=== PATIENT | female | born 1960 | race Caucasian/White ===

== ENCOUNTER → 2017-11-04 13:37 | Outpatient (CLI) | payer OTHER, SELFPAY ==
--- NOTE | 2017-11-04 13:44 | XR_ITS ---
EXAM: XR thoracic spine 3V HISTORY: ITS.REASON: UPPER BACK PAIN,CHEST WALL PAIN COMPARISON: None FINDINGS: Normal alignment. No fracture or dislocation. No lytic or blastic change. There are mild degenerative changes in the midthoracic spine with decrease in the joint space and osteophyte formation anteriorly from T5 to T9. IMPRESSION: Thoracic spondylosis. No acute fracture or dislocation or lytic or blastic change
--- NOTE | 2017-11-04 13:44 | XR_ITS ---
XR chest 2V HISTORY: ITS.REASON: UPPER BACK PAIN,CHEST WALL PAIN ORDERING PHYSICIAN: Kameron Gray MD PATIENT AGE: 57 years COMPARISON: 09/18/2016 FINDINGS: The cardiomediastinal silhouette and pulmonary vascularity are within normal limits. The lungs are clear without infiltrates, suspicious nodules, or pleural effusions. No acute bony abnormalities. IMPRESSION: Negative chest, no acute finding
== END ==
PROVIDERS: PCP Internal Medicine Adolescent Medicine; Visit Provider Internal Medicine Adolescent Medicine
DX: M54.9 Dorsalgia, unspecified (principal); R07.89 Other chest pain
CPT/HCPCS: 71046; 72072

== ENCOUNTER → 2018-11-04 10:51 | Outpatient (CLI) | payer MEDICAID, SELFPAY ==
--- NOTE | 2018-11-04 10:53 | MM_ITS ---
MM Dig screening mamm BI w/CAD CAD Screening COMPARISON: Digital mammograms with CAD 09/06/2015 INDICATION: There is a history of breast cancer in patient's sister diagnosed at age 51 there is been previous biopsy right breast for benign disease. TECHNIQUE: Standard CC and MLO images were obtained. R2 CAD reviewed. FINDINGS: Moderate scattered fibroglandular densities are seen throughout both breasts. There is a stable nodular density upper outer quadrant left breast, stable since 2008. There are couple benign-appearing microcalcifications in each breast. There is no suspicious lesion and there are no suspicious microcalcifications. IMPRESSION: Moderate breast density with no suspicious lesion seen BI-RADS Category: 2 Benign Finding(s) RECOMMENDED FOLLOW-UP: 1YR - 1 YEAR FOLLOW-UP (A letter has been sent to the patient regarding results of the study.)
== END ==
PROVIDERS: PCP Internal Medicine Adolescent Medicine; Visit Provider Internal Medicine Adolescent Medicine
DX: Z12.31 Encounter for screening mammogram for malignant neoplasm of breast (principal)
CPT/HCPCS: 77067

== ENCOUNTER → 2019-03-31 07:16 | Outpatient (CLI) | payer MEDICAID, SELFPAY ==
[2019-03-31 09:20] LABS: Alanine Aminotransferase 17 U/L (12-78); Albumin Level 3.7 gm/dL (3.4-5.0); Albumin/Globulin Ratio 1.3 (1.1-1.8); Alkaline Phosphatase 85 U/L (46-116); Anion Gap 8.7 mEq/L (5-15); Aspartate Amino Transferase 8 U/L (15-37); Bilirubin,Total 0.6 mg/dL (0.2-1.0); Blood Urea Nitrogen 10 mg/dL (7-18); Calcium 9.1 mg/dL (8.5-10.1); Carbon Dioxide 33 mmol/L (21.0-32.0); Chloride 103 mmol/L (98-107); Chol/HDL Ratio 4.6 (1-3.5); Cholesterol 204 mg/dL (140-200); Creatinine,Serum 0.99 mg/dL (0.55-1.02); Estimated Glomerular Filt Rate 57 ml/min (>60); GFR (African American) 69 ML/MIN (>60); Globulin 2.9 gm/dl (1.3-3.2); Glucose 91 mg/dL (74-106); HDL Cholesterol 44 mg/dL (29-89); LDL Cholesterol 123 mg/dL (0-130); Potassium 3.7 mmoL/L (3.5-5.1); Sodium 141 mmol/L (136-145); Total Protein,Serum 6.6 gm/dL (6.4-8.2); Triglycerides 187 mg/dL (30-200); VLDL Cholesterol 37 mg/dL (0-40)
== END ==
PROVIDERS: Visit Provider Internal Medicine Adolescent Medicine
DX: I10 Essential (primary) hypertension (principal); E78.5 Hyperlipidemia, unspecified
CPT/HCPCS: 36415; 80053; 80061

== ENCOUNTER → 2019-10-19 15:20 | Outpatient (CLI) | payer OTHER, SELFPAY ==
--- NOTE | 2019-10-19 15:25 | CT_ITS ---
PROCEDURE: CT LUNG SCREENING CLINICAL INDICATION: H/O NICOTINE DEPENDENCE Fifty pack-year smoking history, asymptomatic for lung cancer COMPARISON: W CT CHEST W/ CONTRAST from 06/07/2013 TECHNIQUE: The exam was performed on a GE Light Speed [address] scanner using 2.90 mGy CTDI. A low dose helical CT CHEST was performed on a multi-detector scanner. All CT scans at the facility use one or more dose reduction, viz: automated exposure control, ma/kV adjustment per patient size (including targeted exams where dose is matched to indication, i.e. head), or iterative reconstruction technique. The LDCT was performed in a facility that meets the criteria for the screening program. Data regarding this exam was submitted to ACR which is an approved registry. The order for this exam indicates that it came as a result of a lung cancer screening counseling shard decision-making visit that included all the elements required of such a visit including smoking cessation. The radiologist interpreting this exam meets the CMS criteria for the LDCT lung cancer screening program. The exam is reported using the Lung-RADS classification scale and reported to the ACR registry. NOTE: This study was performed for the specific purposes of lung cancer screening and is not an alternative to diagnostic chest CT. RADIATION DOSE: CTDI vol(CT dose Index-volume) = 2.90mG DLP (Dose Length Product) = 116.46 mGcm FINDINGS: Centrilobular emphysema. There is calcified nodule on the posterior aspect of the left upper lobe. There are few small satellite nodules around this region. There is a 4 mm noncalcified nodule in the lingula not significantly changed there is a 6 mm nodule in the inferior aspect of the lingula not significantly changed. There are scattered small nodular opacities at 2-3 mm which overall appears stable. OTHER FINDINGS: There is calcification at the aortic root. There is degenerative disc disease with sclerosis of the endplates anteriorly at T8-T9 IMPRESSION: Lung rads category 2 benign findings. Recommend 12 month LDCT screening Dictated by: Gregg Marie MD 11/01/2019 09:19 Electronically signed by Gregg Marie MD in [place] 11/01/2019 09:19
== END ==
PROVIDERS: PCP Internal Medicine Adolescent Medicine; Visit Provider Internal Medicine Adolescent Medicine
DX: Z87.891 Personal history of nicotine dependence (principal); Z12.2 Encounter for screening for malignant neoplasm of respiratory organs

== ENCOUNTER → 2019-11-07 15:01 | Outpatient (CLI) | payer OTHER, SELFPAY ==
--- NOTE | 2019-11-07 15:06 | MM_ITS ---
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 R2 CAD reviewed. FINDINGS: Breasts are of average density. Benign appearing calcifications are seen in both breasts. There is a new approximately 9 millimeter nodule in the central retroareolar region of the left breast poorly visualized on the MLO view/tomosynthesis possibly superiorly. Increased prominence of an asymmetrical density in the middle 1/3 of the lateral left breast is also apparent. There is no definite correlate on the orthogonal views. Coned compression views of the left breast and ultrasound targeted to the mammographic abnormalities are recommended. The appearance of the right breast is stable. IMPRESSION: BI-RAD Category: 0 Need Additional Imaging Evaluation (A letter has been sent to the patient regarding results of the study.) Dictated by: Keo Najera 11/07/2019 18:49 Electronically signed by Keo Najera in [place] 11/07/2019 18:49
== END ==
PROVIDERS: PCP Internal Medicine Adolescent Medicine; Visit Provider Internal Medicine Adolescent Medicine
DX: Z12.31 Encounter for screening mammogram for malignant neoplasm of breast (principal)
CPT/HCPCS: 77063; 77067

== ENCOUNTER → 2020-05-05 10:10 | Outpatient (CLI) | payer OTHER, SELFPAY ==
--- NOTE | 2020-05-05 10:31 | XR_ITS ---
PROCEDURE: XR HAND LT MIN 3V CLINICAL INDICATION: DEGENERATIVE ARTHRITIS OF 1ST MCP ON LEFT HAND Pain COMPARISON: No exams were available for comparison FINDINGS: No fracture or dislocation. There are mild osteoarthritic changes at the 1st metacarpal-carpal joint with periarticular calcification which could be posttraumatic or due to soft tissue calcification. Calcification is present along the lateral aspect of the wrist within the soft tissues. Small periarticular calcification noted laterally at the 1st metacarpal-carpal junction. IMPRESSION: Osteoarthritic changes with nonspecific periarticular calcification Dictated by: Gregg Marie MD 05/05/2020 11:49 Gregg Marie MD in [place] 05/05/2020 11:49
[2020-05-05 10:40] LABS: Basophils % 0.5 % (0.1-2.0); Eosinophils # 0.1 K/mm3 (0.0-0.4); Eosinophils % 1.5 % (0.1-12.0); Hematocrit 46.7 % (37.0-47.0); Hemoglobin 15.8 g/dL (12.2-16.2); Lymphocytes # 2.3 K/mm3 (0.7-4.5); Mean Corpuscular HGB Conc 33.9 g/dL (31.8-35.4); Mean Corpuscular Hemoglobin 31.2 pg (27.0-31.2); Mean Platelet Volume 7.9 fl (7.4-10.4); Monocytes # 0.3 K/mm3 (0.1-1.0); Monocytes % 4.1 % (1.7-9.3); Neutrophils # 4.8 K/mm3 (1.8-7.8); Neutrophils % 62.9 % (37.0-80.0); Platelet Count 268 K/mm3 (142-424); Red Blood Count 5.08 M/mm3 (4.20-5.40); White Blood Count 7.6 K/mm3 (4.8-10.8)
[2020-05-05 11:17] LABS: Chloride 99 mmol/L (98-107); Potassium 3.6 mmoL/L (3.5-5.1); Sodium 139 mmol/L (136-145)
[2020-05-05 11:19] LABS: Alanine Aminotransferase 17 U/L (12-78); Aspartate Amino Transferase 23 U/L (14-36); Blood Urea Nitrogen 15 mg/dl (7-17); Estimated Glomerular Filt Rate 73 ml/min (>60); GFR (African American) 89 ML/MIN (>60)
[2020-05-05 11:20] LABS: Albumin Level 4.3 g/dl (3.5-5.0); Albumin/Globulin Ratio 1.6 (1.1-1.8); Alkaline Phosphatase 69 U/L (38-126); Anion Gap 11.6 mEq/L (5-15); Bilirubin,Total 0.9 mg/dl (0.2-1.3); Calcium 9.8 mg/dl (8.4-10.2); Carbon Dioxide 32 mmol/L (22.0-30.0); Chol/HDL Ratio 3.5 (1-3.5); Cholesterol 217 mg/dl (140-200); Globulin 2.7 g/dL (1.3-3.2); Glucose 103 mg/dl (74-100); HDL Cholesterol 62 mg/dl (40-60); Triglycerides 159 mg/dl (30-150); VLDL Cholesterol 32 mg/dL (0-40)
[2020-05-05 12:08] LABS: Amphetamine/Metha Screen,Urine Negative ng/ml (<1000)
[2020-05-05 12:10] LABS: Barbiturates Screen,Urine Negative ng/ml (<200)
[2020-05-05 12:11] LABS: Benzodiazepines Screen,Urine Negative ng/ml (<200); Cannabinoid Screen,Urine Negative ng/ml (<50)
[2020-05-05 12:12] LABS: Cocaine Screen,Urine Negative ng/ml (<300); Methadone Screen,Urine Negative ng/ml (<300)
[2020-05-05 12:13] LABS: Opiate Screen,Urine Negative ng/ml (<300)
[2020-05-05 12:14] LABS: Phencyclidine Screen,Urine Negative ng/ml (<25)
== END ==
PROVIDERS: Visit Provider Internal Medicine Adolescent Medicine
DX: L40.9 Psoriasis, unspecified (principal); M19.042 Primary osteoarthritis, left hand
CPT/HCPCS: 36415; 73130; 80053; 80061; 80305; 85025

== ENCOUNTER → 2020-06-22 13:33 | Outpatient (CLI) | payer OTHER, SELFPAY ==
--- NOTE | 2020-06-22 13:38 | MR_ITS ---
PROCEDURE: MR HAND LT WO CON CLINICAL INDICATION: PAIN IN LEFT HAND PT FELL [id number] AGO BUT KNOT CAME UP ON LATERAL ASPECT OF HAND AT PROMIXAL METACARPAL OF 1ST DIGIT [id number] AGO. KNOT IS PAINFUL TO PRESS. PUT MARKER ON KNOT. PRIOR X-RAY 05-05-20 COMPARISON: CR XR HAND LT MIN 3V from 05/05/2020 TECHNIQUE: Routine multiplanar multi echo sequences are performed without gadolinium enhancement. FINDINGS: A marker is placed on the lateral aspect of the hand at the area of clinical concern. The marker is placed along the lateral aspect of the 1st metacarpal-carpal joint. Just deep to the marker is the abductor pollicis longus tendon with some fluid around the tendon sheath of the abductor pollicis longus tendon and extensor pollicis brevis tendon.at this region. There is a oval area of fluid at this area best identified on the coronal and sagittal images which measures 7 mm which could be partial averaging from the fluid around the tendon sheath or a small ganglion cyst. There is extensive edema at the base of the 1st metatarsal and the adjacent trapezium with osteoarthritic changes at the 1st metacarpal-carpal joint. There is increased T2 signal involving the distal phalanx of the 3rd digit however, this does not show increased activity on the STIR images suggesting that this may be artifactual. IMPRESSION: 1. There is a small amount of fluid around the abductor pollicis longus and extensor pollicis brevis tendons at the 1st metacarpal-carpal joint. On the sagittal and coronal images the fluid appears more localized at the adductor pollicis longus tendon measuring approximately 7 mm and may be due to small ganglion cyst. 2. Severe osteoarthritis of the 1st metacarpal-carpal joint with significant bone marrow edema of the base of the 1st metacarpal and trapezium Dictated by: Gregg Marie MD 06/26/2020 11:44 Gregg Marie MD in [place] 06/26/2020 11:44
== END ==
PROVIDERS: PCP Internal Medicine Adolescent Medicine; Visit Provider Orthopaedic Surgery Adult Reconstructive Orthopaedic Surgery
DX: M79.642 Pain in left hand (principal)
CPT/HCPCS: 73218

== ENCOUNTER → 2020-11-01 07:59 | Outpatient (CLI) | payer BC, SELFPAY ==
--- NOTE | 2020-11-01 08:07 | CT_ITS ---
PROCEDURE: CT LUNG SCREENING CLINICAL INDICATION: H/O NICOTINE DEPENDENCE Current smoker 49 pack year smoking history copd No prior COMPARISON: CT CT LUNG SCREENING from 10/19/2019 TECHNIQUE: The exam was performed on a GE Light Speed [address] scanner using 2.90 mGy CTDI. A low dose helical CT CHEST was performed on a multi-detector scanner. All CT scans at the facility use one or more dose reduction, viz: automated exposure control, ma/kV adjustment per patient size (including targeted exams where dose is matched to indication, i.e. head), or iterative reconstruction technique. The LDCT was performed in a facility that meets the criteria for the screening program. Data regarding this exam was submitted to ACR which is an approved registry. The order for this exam indicates that it came as a result of a lung cancer screening counseling shard decision-making visit that included all the elements required of such a visit including smoking cessation. The radiologist interpreting this exam meets the CMS criteria for the LDCT lung cancer screening program. The exam is reported using the Lung-RADS classification scale and reported to the ACR registry. NOTE: This study was performed for the specific purposes of lung cancer screening and is not an alternative to diagnostic chest CT. RADIATION DOSE: CTDI vol(CT dose Index-volume) = 2.90mG DLP (Dose Length Product) = 102.90 mGcm FINDINGS: COPD changes with coarsening of the bronchovascular markings which may be seen with smoking related lung disease. 4 mm nodule right upper lobe image 26 not readily apparent previous exam. Faint 3 mm opacity right upper lobe subpleural image 31 also not readily apparent. There are 2 3 mm nodules in the right upper lobe centrally image 33 which have developed in the interval. Stable 7 mm opacity right middle lobe which may actually represent 2 small nodules image 43. There is faint increased density with some bronchial thickening in the right upper lobe posteriorly and a faint ground-glass nodule in the superior segment of the right lower lobe image 28. Stable 5 mm nodule left lower lobe subpleural image 58. New 5 mm nodule left lower lobe posteriorly image 41. Numerous small opacities are present in the left upper lobe some of which are ground-glass in nature. Stable calcified granuloma left upper lobe with small satellite nodules. Atelectatic or fibrotic changes are present in the lung bases. OTHER FINDINGS: Degenerative changes thoracic spine. Borderline splenomegaly IMPRESSION: Lung-RADS Category 4A Suspicious Follow-up: [address] with contrast There are numerous new small nodular opacities in the upper lobes some of which are ground-glass in nature along with a faint ground-glass infiltrate in the right upper lobe and some mild bronchial thickening. These findings may be root infectious/inflammatory in nature. Cannot exclude the possibility of a metastatic process. Suggest [address] follow-up with contrast. Has the patient had recent pneumonia or bronchitis? Dictated by: Gregg Marie MD 11/02/2020 08:03 Gregg Marie MD in [place] 11/02/2020 08:03
--- NOTE | 2020-11-01 08:07 | MM_ITS ---
PROCEDURE: MM DIG SCREENING MAMM BI W/CAD Digital Breast Tomosynthesis Included CLINICAL INDICATION: SCREENING There is a history of breast cancer patient's sister diagnosed at age 51. There has been a previous biopsy left breast for benign disease. COMPARISON: MG [facility] DIG MAMM-SCREEN SHAKIR from 09/06/2015 [facility] MM Dig screening mamm BI w/CAD from 11/04/2018 MG MM DIG SCREENING MAMM BI W/CAD from 11/07/2019 TECHNIQUE: Standard CC and MLO images and 3D Tomosynthesis was obtained. R2 CAD reviewed. FINDINGS: Moderate scattered fibroglandular densities are seen throughout both breasts. There are no CAD markings. There there are 3 mole markers left breast. There is a stable benign-appearing nodular density upper-outer quadrant. There are couple of benign-appearing microcalcifications left breast and a single benign-appearing microcalcification right breast. There is no new or suspicious lesion in either breast and no suspicious microcalcifications. IMPRESSION: Fibrofatty parenchyma with no suspicious lesions seen BI-RAD Category: 2 Benign Finding(s) FOLLOW-UP: 1YR 1 Year Follow-up (A letter has been sent to the patient regarding results of the study.) Dictated by: Dr. Douglas Garcia MD 11/02/2020 13:51 Dr. Douglas Garcia MD in [place] 11/02/2020 13:51
== END ==
PROVIDERS: PCP Internal Medicine Adolescent Medicine; Visit Provider Internal Medicine Adolescent Medicine
DX: Z12.31 Encounter for screening mammogram for malignant neoplasm of breast (principal); Z87.891 Personal history of nicotine dependence; Z12.2 Encounter for screening for malignant neoplasm of respiratory organs
CPT/HCPCS: 71271; 77063; 77067

== ENCOUNTER → 2021-01-09 10:41 | Outpatient (CLI) | payer BC, SELFPAY ==
[2021-01-09 11:43] LABS: Basophils # 0.1 K/mm3 (0-0.2); Basophils % 0.8 % (0.1-2.0); Eosinophils # 0.1 K/mm3 (0.0-0.4); Eosinophils % 1.1 % (0.1-12.0); Hematocrit 47.2 % (37.0-47.0); Hemoglobin 15.9 g/dL (12.2-16.2); Lymphocytes # 2.4 K/mm3 (0.7-4.5); Lymphocytes % 25.2 % (10-50); Mean Corpuscular HGB Conc 33.6 g/dL (31.8-35.4); Mean Corpuscular Hemoglobin 30.4 pg (27.0-31.2); Mean Corpuscular Volume 90.6 fl (81-99); Mean Platelet Volume 8.1 fl (7.4-10.4); Monocytes # 0.5 K/mm3 (0.1-1.0); Monocytes % 4.9 % (1.7-9.3); Neutrophils # 6.4 K/mm3 (1.8-7.8); Neutrophils % 67.9 % (37.0-80.0); Platelet Count 290 K/mm3 (142-424); Red Blood Count 5.21 M/mm3 (4.20-5.40); Red Cell Distribution Width 13.2 % (11.5-17.5); White Blood Count 9.5 K/mm3 (4.8-10.8)
[2021-01-09 12:16] LABS: Alanine Aminotransferase 13 U/L (12-78); Albumin Level 4.5 g/dl (3.5-5.0); Albumin/Globulin Ratio 1.6 (1.1-1.8); Alkaline Phosphatase 75 U/L (38-126); Anion Gap 9.4 mEq/L (5-15); Aspartate Amino Transferase 22 U/L (14-36); Bilirubin,Total 0.8 mg/dl (0.2-1.3); Blood Urea Nitrogen 10 mg/dl (7-17); Calcium 9.4 mg/dl (8.4-10.2); Carbon Dioxide 33 mmol/L (22.0-30.0); Chloride 100 mmol/L (98-107); Chol/HDL Ratio 4.2 (1-3.5); Cholesterol 228 mg/dl (140-200); Estimated Glomerular Filt Rate 73 ml/min (>60); GFR (African American) 88 ML/MIN (>60); Globulin 2.8 g/dL (1.3-3.2); Glucose 93 mg/dl (74-100); HDL Cholesterol 54 mg/dl (40-60); Potassium 4.4 mmoL/L (3.5-5.1); Sodium 138 mmol/L (136-145); Total Protein,Serum 7.3 g/dl (6.3-8.2); Triglycerides 201 mg/dl (30-150); VLDL Cholesterol 40 mg/dL (0-40)
[2021-01-09 12:28] LABS: Direct LDL Cholesterol 117.43 mg/dL (100-129)
[2021-01-09 12:47] LABS: Thyroid Stimulating Hormone 2.79 uIU/mL (0.465-4.68)
== END ==
PROVIDERS: Visit Provider Internal Medicine Adolescent Medicine
DX: I10 Essential (primary) hypertension (principal); E78.5 Hyperlipidemia, unspecified
CPT/HCPCS: 36415; 80053; 80061; 84443; 85025

== ENCOUNTER 2021-01-17 17:43 | Emergency (ER) | payer BC, SELFPAY ==
[2021-01-17 17:45] VITALS: BP 128/78; PULSE 90; RESP 20; TEMP 37; O2SAT 95; BMI 29.9
--- NOTE | 2021-01-17 18:03 | HMH.EDUTC ---
[facility] Disposition Clinical Impression: UTI (urinary tract infection) Low back pain Qualifiers: Chronicity: acute Back pain laterality: left Sciatica presence: with sciatica Sciatica laterality: sciatica of left side Qualified Code(s): M54.42 - Lumbago with sciatica, left side Disposition: Home, Self-Care Condition on Discharge: Good Instructions: DI for Low Back Pain, DI for Urinary Tract Infection (UTI) Additional Instructions: Go home and rest. It would be best if you rested tomorrow too. No heavy lifting. No twisting. Take the oral medications as directed. The muscle relaxer (cyclobenzaprine) will make you drowsy, so don't drive or operate heavy machinery after taking it. Don't start the oral steroids (medrol dose pack) until tomorrow, since you had the shots in here today. Follow up with your regular doctor. GO TO THE ER FOR ANY WORSENING SYMPTOMS OR CONCERN, ESPECIALLY BOWEL OR BLADDER ISSUES, SADDLE AREA NUMBNESS, FEVER, ETC Prescriptions: Sulfamethoxazole/Trimethoprim [Bactrim DS tablet] 1 each PO BID 7 Days #14 tab Transmission Status: Received by [id number] Cyclobenzaprine HCl [Cyclobenzaprine 10mg Tab] 10 mg PO BIDP PRN #20 tab PRN Reason: Muscle Spasm Transmission Status: Received by [id number] methylPREDNISolone [Medrol] 4 mg PO DIRECTED 6 Days #21 tab.ds.pk Transmission Status: Received by [id number] Referrals: Kameron Gray MD [Primary Care Provider] - Forms: Work/School Release Time of Disposition: 18:18 Medical Decision Making - Medical Records Medical records reviewed: No: I reviewed the patient's medical records. - Negrito Inquiry Pt receiving controlled substance: No Vital Signs: 01/17/21 17:45 01/17/21 18:18 Temperature 98.6 F 98.6 F Temperature Source Oral Pulse Rate 90 Pulse Rate [Left Brachial] 90 Respiratory Rate 20 20 Blood Pressure 128/78 Blood Pressure [Left Arm] 128/78 Blood Pressure Mean [Left Arm] 94 Blood Pressure Source [Left Arm] Automatic Cuff Blood Pressure Position [Left Arm] Sitting 02 Sat by Pulse Oximetry 95 Oxygen Delivery Method Room Air - Lab Data Lab results reviewed: Yes: I reviewed the patient's lab results. Lab Results 01/17/21 18:06: Urine Color Dark yellow, Urine Appearance Clear, Urine pH 5.0, Ur Specific Jacob >= 1.030, Urine Protein Negative, Urine Glucose (UA) Negative, Urine Ketones Negative, Urine Blood Trace, Urine Nitrate Negative, Urine Bilirubin 1+ A, Urine Urobilinogen 0.2, Ur Leukocyte Esterase 1+ A Orders (Tests/Meds): ED MEDICATIONS Discontinued Medications Generic Name Dose Route Start Last Admin Trade Name Julianne PRN Reason Stop Dose Admin Ketorolac Tromethamine 60 mg 01/17/21 18:07 01/17/21 18:10 Ketorolac 60mg/2ml Vial IM 01/17/21 18:08 60 mg ONCE ONE Administration Methylprednisolone Sodium Succinate 125 mg 01/17/21 18:07 01/17/21 18:10 Methylprednisolone Sod Succ 125mg Vial IM 01/17/21 18:08 125 mg ONCE ONE Administration ORDERS Category Date Time Status Urine Culture Stat Micro 01/17/21 17:55 Received [facility] HPI - General Stated complaint: lower back pain Time Seen by Provider: 01/17/21 18:03 - History of Present Illness Provider Complaint: She states that she has had low back pain since getting up today. She had to leave work due to her pain. She has a history of this type of pain, but for some reason it is worse today. She denies any recent injuries. She denies any dysuria or urinary fequency. - Related Data Home Medications Medication Instructions Recorded Confirmed Budesonide/Glycopyr/Formoterol 2 puff IH BID 01/17/21 01/17/21 [Breztri Aerosphere Inhaler] Gabapentin [Gabapentin 100mg Cap] 200 mg PO HS 01/17/21 01/17/21 Hydrocodone/Acetaminophen 1 each PO TIDP PRN 01/17/21 01/17/21 [Hydrocodone-Acetamin 5-325 mg] hydroCHLOROthiazide [HCTZ 25mg 25 mg PO DAILY 01/17/21 01/17/21 tab]
[2021-01-17 18:13] LABS: Apearance,Urine Clear (Clear); Color,Urine Dark Yellow (Yellow); Specific Gravity, Urine >= 1.030 (1.005-1.030)
[2021-01-17 18:14] LABS: Bilirubin,Urine 1+ (Negative); Blood, Urine Trace (Negative); Glucose,Urine (UA) Negative (Negative); Ketones,Urine Negative (Negative); Protein,Urine Negative (Negative); UTC Leukocyte Esterase,Urine 1+ (Negative); UTC Nitrate,Urine Negative (Negative); Urobilinogen,Urine 0.2 EU/dl (0.2)
[2021-01-17 18:18] VITALS: BP 128/78; PULSE 90; RESP 20; TEMP 37; O2SAT 95
== END 2021-01-17 18:23 | disposition home or self-care (01) ==
PROVIDERS: Emergency Provider Nurse Practitioner Family; PCP Internal Medicine Adolescent Medicine
DX: N30.00 Acute cystitis without hematuria (principal); M54.42 Lumbago with sciatica, left side; F17.210 Nicotine dependence, cigarettes, uncomplicated
CPT/HCPCS: 81003; 87086; 96372; 99202; G0463

== ENCOUNTER → 2021-02-02 11:17 | Outpatient (CLI) | payer BC, SELFPAY ==
[2021-02-02 12:32] LABS: Blood Urea Nitrogen 10 mg/dl (7-17); Estimated Glomerular Filt Rate 85 ml/min (>60); GFR (African American) 103 ML/MIN (>60)
== END ==
PROVIDERS: Visit Provider Internal Medicine Adolescent Medicine
DX: R91.8 Other nonspecific abnormal finding of lung field (principal)
CPT/HCPCS: 36415; 82565; 84520

== ENCOUNTER → 2021-02-04 08:35 | Outpatient (CLI) | payer BC, SELFPAY ==
--- NOTE | 2021-02-04 08:40 | CT_ITS ---
PROCEDURE: CT CHEST W CON CLINCAL INDICATION: PULMONARY NODULE Follow up LDLS on pacs COMPARISON: CT CT LUNG SCREENING from 11/01/2020 TECHNIQUE: IV Contrast: 75ml Isovue 370 Axial images obtained with sagittal and coronal reformats. All CT scans at the facility use one or more dose reduction, viz: automated exposure control, ma/kV adjustment per patient size (including targeted exams where dose is matched to indication, i.e. head), or iterative reconstruction technique. FINDINGS: HEART AND MEDIASTINAL STRUCTURES: Unremarkable. LUNGS AND PLEURAL SPACES: COPD with centrilobular emphysema and evidence of old granulomatous disease. Scattered faint small pulmonary opacities are once again noted. Most of these are unchanged. A few nodules previously identified are no longer apparent. No new nodules evident. Two small nodular opacities in the right upper lobe anteriorly which in combination measures 7 mm on the previous study are unchanged. The previously described nodule in the right upper lobe which measured 4 mm is not evident on today's exam. Bronchial thickening once again noted. No effusions or infiltrates evident. BONY STRUCTURES: Degenerative changes thoracic spine UPPER ABDOMEN: Unremarkable. ADDITIONAL FINDINGS: No other significant abnormalities. IMPRESSION: Scattered small pulmonary nodular opacities are once again noted. Most are unchanged. A few are less apparent or not identified. No new nodules are evident. These may be inflammatory/infectious in nature. Suggest six-month unenhanced chest CT to confirm further stability. Dictated by: Gregg Marie MD 02/05/2021 10:10 Gregg Marie MD in [place] 02/05/2021 10:11
== END ==
PROVIDERS: PCP Internal Medicine Adolescent Medicine; Visit Provider Internal Medicine Adolescent Medicine
DX: R91.1 Solitary pulmonary nodule (principal)
CPT/HCPCS: 71260; Q9967

== ENCOUNTER → 2021-06-24 10:55 | Outpatient (CLI) | payer BC, OTHER, SELFPAY | PROVIDERS: Visit Provider Surgery | DX: Z01.812 Encounter for preprocedural laboratory examination (principal); Z11.52 Encounter for screening for COVID-19; U07.1 COVID-19 | CPT/HCPCS: C9803; U0003; U0005 ==

== ENCOUNTER → 2021-07-18 15:13 | Outpatient (CLI) | payer OTHER, SELFPAY ==
[2021-07-18 17:02] VITALS: BMI 36.6
== END | disposition home or self-care (01) ==
PROVIDERS: PCP Internal Medicine Adolescent Medicine; Visit Provider Internal Medicine Adolescent Medicine
DX: Z02.1 Encounter for pre-employment examination (principal); Z11.1 Encounter for screening for respiratory tuberculosis
CPT/HCPCS: 86580

== ENCOUNTER → 2021-08-12 14:32 | Outpatient (CLI) | payer OTHER, SELFPAY | PROVIDERS: PCP Internal Medicine Adolescent Medicine; Visit Provider Nurse Practitioner | DX: Z20.822 Contact with and (suspected) exposure to COVID-19 (principal) | CPT/HCPCS: C9803; U0003; U0005 ==

== ENCOUNTER → 2021-09-29 11:10 | Outpatient (CLI) | payer OTHER, SELFPAY | PROVIDERS: Visit Provider Nurse Practitioner | DX: Z20.822 Contact with and (suspected) exposure to COVID-19 (principal) | CPT/HCPCS: C9803; U0003; U0005 ==

== ENCOUNTER → 2021-10-30 13:55 | Outpatient (CLI) | payer OTHER, SELFPAY | PROVIDERS: Visit Provider Surgery | DX: Z01.812 Encounter for preprocedural laboratory examination (principal); Z11.52 Encounter for screening for COVID-19; Z12.11 Encounter for screening for malignant neoplasm of colon | CPT/HCPCS: C9803; U0003; U0005 ==

== ENCOUNTER 2021-11-01 08:28 | Day surgery (SDC) | payer OTHER, SELFPAY ==
[2021-09-10 13:51] VITALS: BMI 33.1
[2021-10-30 12:22] VITALS: BMI 33.1
[2021-11-01 08:41] VITALS: BP 149/77; PULSE 92; RESP 18; TEMP 36.8; O2SAT 95
--- NOTE | 2021-11-01 08:57 | HMH.ANESCL ---
[facility] Anesthesia Checklist - Patient Identification Patient Identification: Arm Band - Structural Data Admitted From: Home Planned Operative Procedure/s: colonoscopy Consent for Planned Operative Procedure(s) Verified: Yes Verified Documents: Surgical Consent, History and Physical - NPO Status Verified Time NPO: 00:00 - Additional verifications Anesthesia Reactions: No - Airway Assessment C-Spine Mobility Assessed: Yes (mp2) TMJ Mobility Assessed: Yes Dentition: Good Dentition - Neurological Assessment Level of Consciousness: Awake, Alert - Anesthesia Plan Anesthesia Risk discussed: Yes Anesthesia Plan: Verified ASA Class: II Anesthesia Type: MAC [facility] History I have reviewed the patient's past medical history: Yes Medical History: Reports:: Chronic Obstructive Pulmonary Disease (COPD), Hypertension Denies:: Cancer, Diabetes Mellitus Type 1, Diabetes Mellitus Type 2, Internal Pacemaker, MRSA, Seizures *Have you ever received a pneumonia vaccine?: Yes *Have you received a flu vaccine this season?: Yes Anesthesia experience/problems:: nac Other Surgeries: Yes: Colonoscopy. No: Pacemaker Amputation: No Fractures: No - *Social History Last grade of school completed: High school graduate Smoking Status: Former smoker Tobacco Type: cigarettes # Packs/Day (cigarettes): 2 #Yrs smoked (if former smoker): 45 Smoking End Date: Jun 09, 2021 Alcohol Intake: never Substance Use Type: denies use *Occupational Status:: employed Housing: house Household Members: family *Travel in the last 8 weeks: None Family Hx:: Cancer
[2021-11-01 09:55] VITALS: O2SAT 95
--- NOTE | 2021-11-01 10:38 | HMH.SCOPE ---
- Procedure: Date: 11/01/21 Patient Date of :: 1960 Procedure Performed:: Total colonoscopy to terminal ileum with numerous polypectomy Indications:: Patient is a 61-year-old female who underwent screening colonoscopy by Dr. Winslow on 11/28/2015 which revealed diverticulosis and polyp x3. She had a couple of 4 mm tubular adenomas and sigmoid hyperplastic polyp. It was recommended she undergo follow-up colonoscopy in 5 years. She was scheduled for screening colonoscopy. Performing Provider:: Arnulfo Coreas MD Referring Provider:: Kameron Gray MD Sedation:: MAC sedation Procedure:: Patient was taken to endoscopy procedure room. SHe was positioned in lateral decubitus position. Adequate intravenous sedation was achieved. Variable stiffness Olympus colonoscope was inserted via the anus. Was advanced to the cecum. There was some undigested vegetable matter, medication, and particulate stool within the colon. However, adequate visualization was achieved with thorough irrigation and suctioning. Ileocecal valve and appendiceal orifice were clearly identified. Colonoscope was advanced a short distance into the terminal ileum. Within the cecum there was a relatively large, at likely greater than 15 mm elongated polyp which was removed with hot snare. Remainder polyp removed with cold snare. In the ascending colon there was a small polyp removed with biopsy forceps. In the descending colon polyp was removed with snare. She had some left-sided diverticulosis. There were several rectosigmoid hyperplastic appearing polyps which were removed with cold biopsy forceps. Within the rectum there is a distal polyp removed with cold snare. Retroflexion within the rectum revealed some prolapsing but nonbleeding internal hemorrhoids. Colonoscope was withdrawn. Findings:: Polyps as noted above. She had 7 total polyps removed. Most distal polyps appeared hyperplastic however. Largest polyp of concern was in the cecum which is elongated measuring up to approximately 15 mm. Recommendations:: Follow-up colonoscopy pending pathology. Likely 3 years Complications:: None immediately apparent Estimated blood obtained (mL): 3
[2021-11-01 10:41] VITALS: BP 109/60; PULSE 78; RESP 18; TEMP 36.3; O2SAT 95
[2021-11-01 10:51] VITALS: BP 126/51; PULSE 78; RESP 18; O2SAT 95
[2021-11-01 11:11] VITALS: BP 127/67; PULSE 80; RESP 18; O2SAT 97
== END 2021-11-01 11:11 | disposition home or self-care (01) ==
LOC: OUTP 08:30
PROVIDERS: PCP Internal Medicine Adolescent Medicine; Visit Provider Surgery
PROC: 0DJD8ZZ Inspection of Lower Intestinal Tract, Via Natural or Artificial Opening Endoscopic (ICD-10-PCS; CPT 45385; principal; 2021-11-01 09:30)
DX: Z12.11 Encounter for screening for malignant neoplasm of colon (principal); K62.1 Rectal polyp; K63.5 Polyp of colon; Z86.010 Personal history of colon polyps; J44.9 Chronic obstructive pulmonary disease, unspecified; I10 Essential (primary) hypertension; Z79.899 Other long term (current) drug therapy; Z80.9 Family history of malignant neoplasm, unspecified; Z87.891 Personal history of nicotine dependence
CPT/HCPCS: 45385; 45380

== ENCOUNTER 2022-04-01 08:10 | Emergency (ER) | payer OTHER, SELFPAY ==
--- NOTE | 2022-04-01 08:33 | XR_ITS ---
FINAL REPORT TECHNIQUE: Chest PA & Lateral CLINICAL HISTORY: sob COMPARISON: November 04, 2017 FINDINGS: Two views of the chest were performed. The heart size is normal. The mediastinum is within normal limits. There are mild chronic changes at the lung bases. There are no pleural effusions. There is no pneumothorax. The bony thorax appears intact. IMPRESSION: No acute cardiopulmonary process. Reviewed, Interpreted and Dictated by Kwan Rahman MD Transcribed by Jessica March Authenticated and [facility]
--- NOTE | 2022-04-01 08:36 | HMH.EDUTC ---
[facility] [place] [facility] [place] Clinical Impression: COVID-19 COPD (chronic obstructive pulmonary disease) Qualifiers: COPD type: COPD with acute exacerbation Qualified Code(s): J44.1 - Chronic obstructive pulmonary disease with (acute) exacerbation Disposition: Home, Self-Care Condition on Discharge: Good Instructions: Chronic Obstructive Pulmonary Disease, DI for Chronic Obstructive Pulmonary Disease, DI for COVID-19 (Suspected or Confirmed ), Preventing the Spread of Coronavirus Discharge Instructions Additional Instructions: Drink plenty of fluids. Take tylenol or ibuprofen for pain or fever. Take the medications as directed. Follow up with your regular doctor. GO TO THE ER FOR ANY WORSENING SYMPTOMS Quarantine until you know the results of your covid-19 test. Notify your school or workplace of your results and follow their instructions regarding return to work/school. Prescriptions: Benzonatate [Benzonatate 100mg cap] 100 mg PO TIDP PRN #30 cap PRN Reason: Cough Transmission Status: Received by [facility] methylPREDNISolone [Medrol] 4 mg PO DIRECTED 6 Days #21 packet Transmission Status: Received by [facility] Nirmatrelvir/Ritonavir [Paxlovid 2X150 mg-100 mg (Eua)] 1 packet PO DIRECTED 5 Days #1 packet Transmission Status: Received by [facility] Azithromycin [Z-Ilya 250mg Tab*] 250 mg PO UD DOSE PK #6 tab Transmission Status: Received by [facility] Referrals: Kameron Gray MD [Primary Care Provider] - Time of Disposition: 09:02 Medical Decision Making - Medical Records Medical records reviewed: No: I reviewed the patient's medical records. - Negrito Inquiry Pt receiving controlled substance: No Vital Signs: 04/01/22 08:37 04/01/22 09:17 Temperature 101.4 F H 99.2 F Temperature Source Temporal Artery Scan Pulse Rate 90 Pulse Rate [Left] 110 H Respiratory Rate 18 18 Blood Pressure 124/67 Blood Pressure [Right Arm] 124/67 Blood Pressure Mean [Right Arm] 86 02 Sat by Pulse Oximetry 90 L - Radiology Data #1 Image(s): Chest Image Reviewed: Yes I reviewed the patient's radiology image, Yes I have reviewed radiologist's interpretation Preliminary Findings: Normal/NAD, No Infiltrates Seen FINAL REPORT TECHNIQUE: Chest PA & Lateral CLINICAL HISTORY: sob COMPARISON: November 04, 2017 FINDINGS: Two views of the chest were performed. The heart size is normal. The mediastinum is within normal limits. There are mild chronic changes at the lung bases. There are no pleural effusions. There is no pneumothorax. The bony thorax appears intact. IMPRESSION: No acute cardiopulmonary process. Reviewed, Interpreted and Dictated by Kwan Rahman MD Transcribed by Jessica March Authenticated and [facility] HPI - General Stated complaint: fever, chills, congestion, + home test Time Seen by Provider: 04/01/22 08:36 - History of Present Illness Provider Complaint: She states that for the past 2 day she has had sinus congestion, body aches, chills and she has felt bad. - Related Data Home Medications Medication Instructions Recorded Confirmed Gabapentin [Gabapentin 100mg Cap] 200 mg PO HS 01/17/21 11/12/21 Hydrocodone/Acetaminophen 1 each PO TIDP PRN 01/17/21 11/12/21 [Hydrocodone-Acetamin 5-325 mg] hydroCHLOROthiazide [HCTZ 25mg 25 mg PO DAILY 01/17/21 11/12/21 tab] Fluticasone/Umeclidin/Vilanter 1 puffs IH DAILY 09/10/21 11/12/21 [Trelegy Ellipta 100/62.5/25mcg Inhaler] Previous Rx's Medication Instructions Recorded Cyclobenzaprine HCl 10 mg PO BIDP PRN #20 tab 01/17/21 [Cyclobenzaprine 10mg Tab] Azithromycin [Z-Ilya 250mg Tab*] 250 mg PO UD DOSE PK #6 tab 04/01/22 Benzonatate [Benzonatate 100mg 100 mg PO TIDP PRN #30 cap 04/01/22 cap] Nirmatrelvir/Ritonavir [Paxlovid 1 packet PO
[2022-04-01 08:37] VITALS: BP 124/67; PULSE 110; RESP 18; TEMP 38.6; O2SAT 90; BMI 29.9
[2022-04-01 09:17] VITALS: BP 124/67; PULSE 90; RESP 18; TEMP 37.3; O2SAT 96
== END 2022-04-01 09:18 | disposition home or self-care (01) ==
PROVIDERS: Emergency Provider Nurse Practitioner Family; PCP Internal Medicine Adolescent Medicine
DX: U07.1 COVID-19 (principal); J44.1 Chronic obstructive pulmonary disease with (acute) exacerbation
CPT/HCPCS: 71046; 99212; C9803; G0463; U0003; U0005

== ENCOUNTER 2022-05-19 12:10 | Emergency (ER) | payer OTHER, SELFPAY ==
[2022-05-19 12:41] VITALS: BP 130/81; PULSE 83; RESP 19; TEMP 36.7; O2SAT 100; BMI 33.1
--- NOTE | 2022-05-19 13:14 | EXP.UTC ---
Discharge Plan Disposition Patient Disposition: Home, Self-Care Condition: Good Prescriptions Prescriptions: No Action hydrocodone-acetaminophen 1 EACH tablet 1 each PO TIDP PRN (Reason: PAIN) hydrochlorothiazide 25 MG tablet 25 mg PO DAILY gabapentin 100 MG capsule 200 mg PO HS Referrals Follow up/Referrals: Kameron Gray MD [Primary Care Provider] - See instructions Activity Restrictions/Add. Instructions Additional Instructions/Restrictions: Suture instructions: ?You have required stitches today. Please read the following instructions so you know how to care for them: ?1. Keep wound area dry for the first 24 hours. 2?? May clean gently with mild soap and water, after 48 hours to prevent crusting over suture knots. 3. You may shower if your provider gives permission but do not take a bath until the skin is healed.. 4. Never leave a wet dressing or Band-Aid on your stitches as this allows bacteria to reach the area and may cause infection. Band-aids can cause the wound to sweat and not recommended to wear for long periods of time Watch for signs of infection: ? Increasing redness, tenderness or warmth around the suture site ? Unusual swelling around the site ? Appearance of pus around each suture or any red streaks ? Fever If you develop any of the above signs or symptoms of infection, Follow up with Family Physician immediately 5. Suture removal in _10-12___days 6. Return to [facility] or follow up with family doctor for removal. This can be done by any medical provider dur?ing regular hours on Thursday through Thursday, by appointment. Clinical Impressions Clinical Impression: Laceration Instructions Patient Instructions: DI for Laceration Repair Discharge ED Provider: Valeria Santillan [facility] [place] HPI General Stated complaint: Cut RT hand@work 05/19 8am Mode of Arrival: Ambulatory Source of Information: Patient Limitations: No Limitations Time Seen by Provider: 05/19/22 13:14 Description of Symptoms (Recalled from Triage Doc. by RN): pt comes in with laceration to right hand. pt cut hand on box spring frame builder at work. HEENT Symptoms (Recalled from RN notes): No Resp Symptoms (Recalled from RN notes): No Skin Symptoms (Recalled from RN notes): Yes MS Symptoms (Recalled from RN notes): No Functional Status (Recalled from RN notes): n/a History of Present Illness Provider Complaint: Patient state that she was using a box spring frame builder at work and it slipped and she cut her right hand just below her finger States she thought she could close it with butterfly strips but it wouldnt hold it so she came in Related Data Home Medications Medication Instructions Recorded Confirmed gabapentin 100 mg capsule 200 mg PO HS BACK PAIN 01/17/21 05/19/22 hydrochlorothiazide 25 mg tablet 25 mg PO DAILY Hypertension 01/17/21 05/19/22 hydrocodone 5 mg-acetaminophen 325 1 each PO TIDP PRN PAIN 01/17/21 05/19/22 mg tablet Allergies Allergy/AdvReac Type Severity Reaction Status Date / Time No Known Drug Allergies Allergy Unknown Verified 05/19/22 12:47 Worker's Comp Is this a Worker's Comp case?: No PFSH PFSH Social History Smoking Status: Former smoker pack-years: 45 second hand exposure: No alcohol intake: never substance use type: denies use current occupational status: employed Travel in the last 8 weeks: None household members: family housing: house current occupation: [employer] current occupational exposures/hazards: No caffeine: Yes ROS Obtained: Yes All systems reviewed & no additional complaints except as documented and Yes Systems reviewed as appropriate & no additional complaints except as documented Constitutional Constitutional: Reports system reviewed and no additional complaints, except as documented and Reports as per HPI Respiratory Respiratory: Reports system reviewed and no additional complaints, except as documented a
[2022-05-19 13:40] VITALS: BP 130/81; PULSE 83; RESP 19; TEMP 36.7; O2SAT 100
== END 2022-05-19 13:45 | disposition home or self-care (01) ==
PROVIDERS: Emergency Provider Nurse Practitioner; PCP Internal Medicine Adolescent Medicine
DX: S61.411A Laceration without foreign body of right hand, initial encounter (principal); Z79.1 Long term (current) use of non-steroidal anti-inflammatories (NSAID); Z79.899 Other long term (current) drug therapy; Z87.891 Personal history of nicotine dependence; W26.9XXA Contact with unspecified sharp object(s), initial encounter
CPT/HCPCS: 12001; 90471; 90714; 99213; G0463

== ENCOUNTER 2022-07-24 14:04 | Emergency (ER) | payer OTHER, SELFPAY ==
[2022-07-24 15:35] VITALS: BP 0/0; PULSE 0; RESP 0; TEMP -17.7; TEMP 0
== END 2022-07-24 15:36 | disposition left against medical advice (07) ==
LOC: UTC 14:06
PROVIDERS: Emergency Provider Nurse Practitioner Family; PCP Internal Medicine Adolescent Medicine
DX: Z53.8 Procedure and treatment not carried out for other reasons (principal)

== ENCOUNTER → 2022-09-19 09:14 | Outpatient (CLI) | payer OTHER, SELFPAY ==
[2022-09-19 10:32] LABS: Basophils # 0.1 K/mm3 (0-0.2); Basophils % 1.3 % (0.1-2.0); Eosinophils # 0.1 K/mm3 (0.0-0.4); Eosinophils % 0.9 % (0.1-12.0); Hemoglobin 14.4 g/dL (12.2-16.2); Lymphocytes # 2.1 K/mm3 (0.7-4.5); Lymphocytes % 24.7 % (10-50); Mean Corpuscular HGB Conc 33.4 g/dL (31.8-35.4); Mean Corpuscular Hemoglobin 30.1 pg (27.0-31.2); Mean Corpuscular Volume 89.9 fl (81-99); Mean Platelet Volume 8.3 fl (7.4-10.4); Monocytes # 0.5 K/mm3 (0.1-1.0); Monocytes % 5.4 % (1.7-9.3); Neutrophils # 5.9 K/mm3 (1.8-7.8); Neutrophils % 67.7 % (37.0-80.0); Platelet Count 333 K/mm3 (142-424); Red Blood Count 4.78 M/mm3 (4.20-5.40); Red Cell Distribution Width 13.5 % (11.5-17.5); White Blood Count 8.7 K/mm3 (4.8-10.8)
[2022-09-19 11:18] LABS: Alanine Aminotransferase 15 U/L (12-78); Albumin Level 4.4 g/dl (3.5-5.0); Albumin/Globulin Ratio 1.8 (1.1-1.8); Alkaline Phosphatase 89 U/L (38-126); Anion Gap 8.6 mEq/L (5-15); Aspartate Amino Transferase 22 U/L (14-36); Bilirubin,Total 0.7 mg/dl (0.2-1.3); Blood Urea Nitrogen 9 mg/dl (7-17); Calcium 9.1 mg/dl (8.4-10.2); Carbon Dioxide 34 mmol/L (22.0-30.0); Chloride 101 mmol/L (98-107); Chol/HDL Ratio 4.9 (1-3.5); Cholesterol 225 mg/dl (140-200); Estimated Glomerular Filt Rate 85 ml/min (>60); GFR (African American) 103 ML/MIN (>60); Globulin 2.5 g/dL (1.3-3.2); Glucose 98 mg/dl (74-100); HDL Cholesterol 46 mg/dl (40-60); Potassium 3.6 mmoL/L (3.5-5.1); Sodium 140 mmol/L (136-145); Total Protein,Serum 6.9 g/dl (6.3-8.2); Triglycerides 266 mg/dl (30-150); VLDL Cholesterol 53 mg/dL (0-40)
== END ==
PROVIDERS: PCP Internal Medicine Adolescent Medicine; Visit Provider Internal Medicine Adolescent Medicine
DX: J43.1 Panlobular emphysema (principal); E78.5 Hyperlipidemia, unspecified; Z86.010 Personal history of colon polyps
CPT/HCPCS: 36415; 80053; 80061; 85025

== ENCOUNTER → 2022-09-22 13:28 | Outpatient (CLI) | payer OTHER, SELFPAY ==
--- NOTE | 2022-09-22 13:33 | CT_ITS ---
FINAL REPORT CLINICAL HISTORY: HX OF NICOTINE DEPENDENCE, SOA, FORMER SMOKER X 50YRS. HX COPD. COMPARISON: 02/04/2021 FINDINGS: CTDI vol (mGy): 2.90 DLP: 93.[address] images of the chest were obtained using the low-dose protocol for screening. There is no evidence of mediastinal or hilar mass or adenopathy. No axillary mass or adenopathy is identified. On the lung window images, there is emphysema and evidence of prior granulomatous disease. There is a 9 mm left upper lobe pulmonary nodule on image number 38 which is new from prior exam. Additional, less than 5 mm, bilateral upper lobe nodules are stable. There is no consolidation. There is no pleural or pericardial effusion. IMPRESSION: New 9 mm left upper lobe pulmonary nodule. Lung RADS category 4A. Recommend PET-CT or three-month follow-up CT for further evaluation. Reviewed, Interpreted and Dictated by Carmen Marquez MD Transcribed by Diana Mckeon Authenticated and [facility]
== END ==
PROVIDERS: PCP Internal Medicine Adolescent Medicine; Visit Provider Internal Medicine Adolescent Medicine
DX: Z87.891 Personal history of nicotine dependence (principal); Z12.2 Encounter for screening for malignant neoplasm of respiratory organs
CPT/HCPCS: 71271

== ENCOUNTER → 2022-12-18 07:31 | Outpatient (CLI) | payer OTHER, SELFPAY ==
--- NOTE | 2022-12-18 07:33 | MR_ITS ---
FINAL REPORT TECHNIQUE: Multiplanar MR without contrast CLINICAL HISTORY: ACUTE RIGHT SIDED BACK PAIN. bilateral low back pain worse on left side. pain while walking. tingling in right foot. FINDINGS: Sagittal images show normal vertebral height. There is minimal anterolisthesis of L3 on 4. Marrow signal pattern is unremarkable. T12-L1: Unremarkable L1-2: Moderate diffuse disc bulge. Mild left lateral canal disc protrusion contacting the L2 nerve root. Mild central canal stenosis. Moderate left and mild right neural foraminal narrowing. L2-3: Mild annular disc bulge and facet arthropathy. Borderline central canal stenosis and moderate bilateral neural foraminal narrowing. L3-4: Mild annular disc bulge. Moderate facet arthropathy. Moderate central canal stenosis and moderate bilateral neural foraminal narrowing. L4-5: Moderate annular disc bulge. Moderate bilateral facet arthropathy. Mild central canal stenosis and moderate bilateral neural foraminal narrowing. L5-S1: Mild annular disc bulge. Mild facet arthropathy. IMPRESSION: Multilevel disc disease as above. Reviewed, Interpreted and Dictated by Shin Paris MD Transcribed by Alyson Hall Authenticated and [facility]
== END ==
PROVIDERS: PCP Internal Medicine Adolescent Medicine; Visit Provider Internal Medicine Adolescent Medicine
DX: M54.41 Lumbago with sciatica, right side (principal)
CPT/HCPCS: 72148; 76376

== ENCOUNTER 2023-03-24 14:30 | Outpatient (RCR) | payer OTHER, SELFPAY | END 2023-03-24 14:35 | disposition home or self-care (01) | LOC: PT 14:30 | PROVIDERS: PCP Internal Medicine Adolescent Medicine; Visit Provider Orthopaedic Surgery | DX: M54.50 Low back pain, unspecified (principal); M41.9 Scoliosis, unspecified | CPT/HCPCS: 97010; 97110; 97140; 97163 ==

== ENCOUNTER → 2023-03-25 09:02 | Outpatient (CLI) | payer OTHER, SELFPAY ==
--- NOTE | 2023-03-25 09:05 | XR_ITS ---
FINAL REPORT CLINICAL HISTORY: post menopausal COMPARISON: None FINDINGS: Using L1-4, the bone mineral density of the spine is 1.032 g/cm2, corresponding to T-score of -1.0 which is within normal limits. Using the left hip, the bone mineral density of the femoral neck is 0.760 g/cm2, corresponding to a T-score of -0.8 which is within normal limits. Using the right hip, the bone mineral density of the femoral neck is 0.741 g/cm2, corresponding to a T-score of -1.0 which is within normal limits. FRAX 10 year fracture risk is 0.5% for a hip fracture and 7.3% for a major osteoporotic fracture. NOTE: T-score: Standard deviation compared with peak bone mass of young adult mean. *Following the recommendations of the International Society of Bone densitometry, classification of hip BMD is based on the lower of two T-scores; total hip or femoral neck. IMPRESSION: Normal bone mineral density of the lumbar spine and hips. Reviewed, Interpreted and Dictated by Arnulfo Hu III, MD Transcribed by Julianne Jimenes Authenticated and [facility]
== END ==
PROVIDERS: PCP Internal Medicine Adolescent Medicine; Visit Provider Internal Medicine Adolescent Medicine
DX: Z78.0 Asymptomatic menopausal state (principal); Z13.820 Encounter for screening for osteoporosis
CPT/HCPCS: 77080

== ENCOUNTER → 2023-07-21 14:07 | Outpatient (CLI) | payer OTHER, SELFPAY ==
--- NOTE | 2023-07-21 14:10 | CT_ITS ---
FINAL REPORT TECHNIQUE: Axial images were obtained through the chest without contrast. Sagittal and coronal reformatted images were obtained and reviewed. This study was performed with techniques to keep radiation doses as low as reasonably achievable (ALARA). Individualized dose reduction techniques using automated exposure control or adjustment of mA and/or kV according to the patient's size were employed. CLINICAL HISTORY: PULMONARY NODULE COMPARISON: 09/22/2022 FINDINGS: There are few small scattered mediastinal lymph nodes. The heart size is normal. There is no pericardial or pleural effusion. Limited images of the upper abdomen are unremarkable. There are calcified granulomas in the posterior medial left upper lobe. There are moderate changes of centrilobular emphysema. There is a spiculated mass which appears cavitary on coronal images 31 of series 601 and images 115 of series 3. Focus measures approximately 1.3 cm in diameter. This is increased in size since previous highly concerning for neoplasm. There is a new opacity in the posterior right middle lobe measuring up to 2.4 cm in greatest dimension well seen on image 147 of series 3. IMPRESSION: Significant increase in size in the left upper lobe mass highly concerning for neoplasia. Recommend PET-CT and or tissue sampling. New density in the posterior right middle lobe, may be inflammatory or neoplastic. Again, PET evaluation may be of value. Reviewed, Interpreted and Dictated by Kwan Rahman MD Transcribed by Alyson Hall Authenticated and [facility]
--- NOTE | 2023-07-21 14:10 | MM_ITS ---
PROCEDURE INFORMATION: Exam: MG Bilateral Screening 3D Mammography Exam date and time: 07/21/2023 2:26 PM Age: 62 years old Clinical indication: Screening examination. Her sister had breast cancer at age 51. TECHNIQUE: Imaging protocol: Bilateral Screening tomosynthesis and 2D mammography including computer-aided detection (CAD) when performed. COMPARISON: 1. MG MM DIG SCREENING MAMM BI W/CAD 11/01/2020 8:23 AM 2. MG MM DIG SCREENING MAMM BI W/CAD 11/07/2019 3:15 PM 3. MG SCBI MM Dig screening mamm BI w/CAD 11/04/2018 11:07 AM 4. MG DMSB DIG MAMM-SCREEN SHAKIR 09/06/2015 4:20 PM FINDINGS: MAMMOGRAPHY: Breast composition: There are scattered areas of fibroglandular density. Mass: No suspicious mass. Architectural distortion: None. Calcifications: No suspicious calcifications. Asymmetric density: None. Skin thickening: None. Axillary adenopathy: None. IMPRESSION: No mammographic evidence of malignancy. Annual screening is recommended unless otherwise clinically indicated. ASSESSMENT: BI-RADS Category 1: Negative
== END ==
PROVIDERS: PCP Internal Medicine Adolescent Medicine; Visit Provider Internal Medicine Adolescent Medicine
DX: R91.1 Solitary pulmonary nodule (principal); Z92.89 Personal history of other medical treatment
CPT/HCPCS: 71250; 77063; 77067

== ENCOUNTER 2023-12-10 10:36 | Outpatient (CLI) | payer OTHER, SELFPAY ==
[2023-12-10 11:30] LABS: Basophils # 0.1 K/mm3 (0-0.2); Basophils % 0.5 % (0.1-2.0); Eosinophils # 0.1 K/mm3 (0.0-0.4); Eosinophils % 0.5 % (0.1-12.0); Hematocrit 41.5 % (37.0-47.0); Hemoglobin 13.5 g/dL (12.2-16.2); Lymphocytes # 1.9 K/mm3 (0.7-4.5); Lymphocytes % 16.4 % (10-50); Mean Corpuscular HGB Conc 32.6 g/dL (31.8-35.4); Mean Corpuscular Hemoglobin 30.9 pg (27.0-31.2); Mean Corpuscular Volume 94.8 fl (81-99); Mean Platelet Volume 8.1 fl (7.4-10.4); Monocytes # 0.7 K/mm3 (0.1-1.0); Monocytes % 5.6 % (1.7-9.3); Neutrophils % 76.9 % (37.0-80.0); Platelet Count 505 K/mm3 (142-424); Red Blood Count 4.38 M/mm3 (4.20-5.40); Red Cell Distribution Width 13.8 % (11.5-17.5); White Blood Count 11.7 K/mm3 (4.8-10.8)
[2023-12-10 12:20] LABS: Alanine Aminotransferase 17 U/L (12-78); Albumin Level 3.8 g/dl (3.5-5.0); Albumin/Globulin Ratio 1.5 (1.1-1.8); Alkaline Phosphatase 139 U/L (38-126); Anion Gap 9.1 mEq/L (5-15); Aspartate Amino Transferase 22 U/L (14-36); Bilirubin,Total 0.7 mg/dl (0.2-1.3); Blood Urea Nitrogen 12 mg/dl (7-17); Calcium 9.5 mg/dl (8.4-10.2); Carbon Dioxide 33 mmol/L (22.0-30.0); Chloride 101 mmol/L (98-107); Estimated Glomerular Filt Rate 101 ml/min (>60); GFR (African American) 122 ML/MIN (>60); Globulin 2.6 g/dL (1.3-3.2); Glucose 105 mg/dl (74-100); Potassium 4.1 mmoL/L (3.5-5.1); Sodium 139 mmol/L (136-145); Total Protein,Serum 6.4 g/dl (6.3-8.2)
== END 2023-12-10 23:59 | disposition home or self-care (01) ==
LOC: LAB 10:37
PROVIDERS: PCP Internal Medicine Adolescent Medicine; Visit Provider Internal Medicine Medical Oncology
DX: C34.12 Malignant neoplasm of upper lobe, left bronchus or lung (principal)
CPT/HCPCS: 36415; 80053; 85025

== ENCOUNTER 2023-12-16 09:46 | Outpatient (POV) | payer OTHER, SELFPAY | END 2023-12-16 23:59 | disposition home or self-care (01) | LOC: SC 09:46 | PROVIDERS: Visit Provider Specialist/Technologist | DX: Z00.00 Encounter for general adult medical examination without abnormal findings (principal) ==

== ENCOUNTER 2023-12-28 11:05 | Day surgery (SDC) | payer OTHER, SELFPAY ==
[2023-12-24 10:42] VITALS: BMI 28.4
[2023-12-28] VITALS (8 sets, daily range): BP systolic 100–154; BP diastolic 54–85; PULSE 92–105; RESP 10–23; TEMP 36.6; O2SAT 91–97
[2023-12-28] MEDS: SODIUM CHLORIDE 0.9% 20ML VIAL 40 ML IV (13:50)
[2023-12-28] MEDS: ROPIVACAINE 0.5% 30ML VIAL 150 MG (13:51)
[2023-12-28] MEDS: LIDOCAINE 1% 20ML MDV 20 ML (13:51)
[2023-12-28] MEDS: CEFAZOLIN SODIUM 1 GM in 0.9 % SODIUM CHLORIDE 50 ML IV (13:52)
--- NOTE | 2023-12-28 14:41 | SUR.PREOP ---
Family updated at this time
--- NOTE | 2023-12-28 15:00 | P.OP_ITS ---
Date of procedure: 12/28/23 Pre-op Diagnosis:: Lung cancer, need for semipermanent intravenous access Post-op Diagnosis:: Same Procedure performed:: Placement of 8 [place] open-ended tunneled venous access catheter left subclavian vein with reservoir port (PowerPort) Surgeon:: Arnulfo Coreas MD ANGIO TECHNOLOGIST:: Kobe Berthajena Anesthesia: LMA Estimated blood loss (mL): 25 Operative findings:: Seemingly normal anatomy. Operative note:: Consent was obtained patient was taken the operating room. She was given preoperative intravenous antibiotic. In the operating room she was placed in a supine position. Anesthesia was induced via LMA. Neck and upper chest were prepped and draped in the standard surgical fashion bilaterally. She was positioned in Trendelenburg position. Local anesthetic was infiltrated inferior to the left clavicle. 18-gauge needle was inserted manipulating it posterior to the clavicle. There was return of venous blood initially tenuous but then adequate. Guidewire easily threaded. Fluoroscopy was used to confirm appropriate position of the guidewire. Small incision was made at the insertion site. Dilator with breakaway sheath was then inserted over the guidewire using Seldinger technique. Guidewire and dilator were removed. Single lumen open- ended catheter was threaded through the breakaway sheath. Breakaway sheath was then removed. Fluoroscopy was used to confirm appropriate position of the tip of the catheter near the atriocaval junction. This was at approximately 19 cm at the skin. Skin was then marked with a skin marker for planned subcutaneous tunneling and pocket. Local anesthetic was infiltrated. Skin incision was made for subcutaneous pocket. Subcutaneous pocket was created with electrocautery. Catheter was tunneled subcutaneously. It was cut to the appropriate length. [place] port was secured to the catheter. Fluoroscopy was used to confirm good position and no pneumothorax. Catheter aspirated and flushed at this time. Catheter was sutured in place with 2-0 PDS. There was good hemostasis. Deep dermal tissues were reapproximated with a running 2-0 Vicryl. Skin was closed with 4-0 Monocryl in a subcuticular fashion. Dressing was applied. At this time catheter was accessed. However with repeat repositioning of the Early needle infusion tubing there was no good aspiration of blood. Therefore dressing was removed and the incision was reopened. PDS sutures securing the reservoir port in place were removed. Rest report was repositioned somewhat angled such that the bend in the catheter tubing was somewhat more gentle. Catheter then was able to be flushed and aspirated. It was secured with a couple of 2-0 PDS sutures. Once again deep dermal tissues were closed with a running 2-0 Vicryl. Skin was closed with 4-0 Monocryl in a running subcuticular fashion. New dressing was applied. Port was then able to be accessed and there was good aspiration of blood. It was flushed with saline flush followed by heparinized saline. Additional dressing was applied for the infusion tubing. . Condition: stable Disposition: PACU Complications:: None immediately apparent
--- NOTE | 2023-12-28 15:05 | XR_ITS ---
FINAL REPORT CLINICAL HISTORY: port placement FINDINGS: A single view of the chest was obtained. The heart is normal in size. A chest port is present with the tip in the SVC. The lungs are underinflated. There is no acute infiltrate. There is no pleural effusion. There is no pneumothorax. There is no acute osseous abnormality. IMPRESSION: No acute cardiopulmonary process. Reviewed, Interpreted and Dictated by Kwan Rahman MD Transcribed by Trish Banuelos Authenticated and [facility]
--- NOTE | 2023-12-28 15:05 | XR_ITS ---
FINAL REPORT CLINICAL HISTORY: PORT PLACEMENT IN OR ft 0.2min dap 1.83 FINDINGS: FLUOROSCOPY LESS THAN 1 HOUR HISTORY: Port placement FINDINGS: Fluoroscopic guidance was provided for intraoperative port placement. A single spot film was obtained. 0.2 minutes of fluoroscopy time were used. The dosage measured as 1.83 mGy. IMPRESSION: As above. Reviewed, Interpreted and Dictated by Kwan Rahman MD Transcribed by Goldie Be Authenticated and [facility]
--- NOTE | 2023-12-28 15:05 | EXP.ANES.I ---
[facility] Anesthesia Record Part I Anesthesia Record I Intake, IV Amount: 700 Hydration: Adequate Estimated blood loss (mL): 20 Urine output (mL): 0 Blood Pressure: 148/85 SaO2: 97 Pulse Rate: 101 Airway Patency: Patent Respiratory Rate: 21 Temperature: 97.8 F Patient is:: Drowsy and Oral/Nasal airway Stable to PACU at:: 15:00
--- NOTE | 2023-12-29 07:12 | EXP.ANES.II ---
[facility] Anesthesia Record Part II Anesthesia Record Part II Discharge Time: 15:25 Destination: Surgical Day Care (OP Surgery) PACU nurse assessment reviewed?: Yes Patient Condition:: Good Anesthesia Complications:: None Swallowing reflex intact?: Yes Airway Patency: Patent Cyanosis?: No Blood Pressure: 129/75 SaO2: 97 Respiratory Rate: 23 Pulse Rate: 92 Temperature: 97.8 F Mental Status: Alert & Oriented Pain level:: 0 Nausea and/or vomitting:: None Intake, IV Amount: 0 Hydration: Adequate
[2023-12-29 07:13] VITALS: BP 129/75; PULSE 92; RESP 23; TEMP 36.6; O2SAT 97
== END 2023-12-28 15:55 | disposition home or self-care (01) ==
PROVIDERS: PCP Internal Medicine Adolescent Medicine; Visit Provider Surgery
PROC: (CPT 36561; principal; 2023-12-28 13:00)
DX: C34.90 Malignant neoplasm of unspecified part of unspecified bronchus or lung (principal)
CPT/HCPCS: 36561; 71045; 76000; 96374; C1788; J1642; J2405

== ENCOUNTER 2023-12-29 09:58 | Outpatient (CLI) | payer OTHER, SELFPAY ==
[2023-12-29] MEDS: DEXAMETHASONE 4MG TABLET 4 MG (10:27)
[2023-12-29] MEDS: ONDANSETRON 4MG ODT 16 MG (10:27)
[2023-12-29 10:28] VITALS: BP 123/62; PULSE 75; RESP 20; TEMP 36.6; O2SAT 98
[2023-12-29] MEDS: VITAMIN B-12 1,000 MCG 1ML VIAL 1000 MCG (10:28)
[2023-12-29] MEDS: PROCHLORPERAZINE 10MG TABLET 10 MG PO (10:28)
[2023-12-29] MEDS: 0.9 % SODIUM CHLORIDE 100 ML IV (10:28)
[2023-12-29] MEDS: FOLIC ACID 1MG TABLET 1 MG PO (10:45)
[2023-12-29] MEDS: SODIUM CHLORIDE 0.9% 10ML FLUSH SYRINGE 10 ML IV (10:51)
[2023-12-29 11:12] VITALS: BP 131/71; PULSE 80; RESP 20; O2SAT 98
[2023-12-29 11:59] VITALS: BP 130/79; PULSE 81; RESP 20; O2SAT 97
[2023-12-29] MEDS: PEMETREXED DISODIUM IV (11:59)
[2023-12-29] MEDS: SODIUM CHLORIDE 0.9% IV (11:59)
[2023-12-29 12:20] VITALS: BP 127/66; PULSE 79; RESP 20; O2SAT 98
--- NOTE | 2023-12-31 14:13 | DIET.NUTRFU ---
Called patient secondary to chemo infusion. Patient reported she tolerated it well with no reported nausea and no concerns for wt loss. Provided contact information if any problems occur in future
== END 2023-12-29 12:20 | disposition home or self-care (01) ==
PROVIDERS: PCP Internal Medicine Adolescent Medicine; Visit Provider Internal Medicine Medical Oncology
DX: C34.12 Malignant neoplasm of upper lobe, left bronchus or lung (principal)
CPT/HCPCS: 96411; 96413; J1642; J9045; J9305

== ENCOUNTER 2024-01-19 09:36 | Outpatient (CLI) | payer OTHER, SELFPAY ==
[2024-01-19 09:41] VITALS: BMI 27.4
[2024-01-19 10:04] LABS: Basophils # 0.1 K/mm3 (0-0.2); Basophils % 0.7 % (0.1-2.0); Hematocrit 39.7 % (37.0-47.0); Hemoglobin 12.6 g/dL (12.2-16.2); Lymphocytes # 1.3 K/mm3 (0.7-4.5); Mean Corpuscular HGB Conc 31.9 g/dL (31.8-35.4); Mean Corpuscular Volume 97.2 fl (81-99); Mean Platelet Volume 8.2 fl (7.4-10.4); Monocytes # 0.6 K/mm3 (0.1-1.0); Monocytes % 5.4 % (1.7-9.3); Neutrophils # 9.6 K/mm3 (1.8-7.8); Platelet Count 534 K/mm3 (142-424); Red Blood Count 4.08 M/mm3 (4.20-5.40); Red Cell Distribution Width 15.9 % (11.5-17.5); White Blood Count 11.6 K/mm3 (4.8-10.8)
[2024-01-19 10:16] LABS: Chloride 96 mmol/L (98-107); Sodium 132 mmol/L (136-145)
[2024-01-19 10:19] LABS: Alanine Aminotransferase 26 U/L (12-78); Albumin Level 4.2 g/dl (3.5-5.0); Albumin/Globulin Ratio 1.4 (1.1-1.8); Alkaline Phosphatase 131 U/L (38-126); Aspartate Amino Transferase 26 U/L (14-36); Bilirubin,Total 0.4 mg/dl (0.2-1.3); Blood Urea Nitrogen 14 mg/dl (7-17); Calcium 9.3 mg/dl (8.4-10.2); Carbon Dioxide 28 mmol/L (22.0-30.0); Creatinine Clearance Estimated 67 mL/min (50-200); Estimated Glomerular Filt Rate 101 ml/min (>60); GFR (African American) 122 ML/MIN (>60); Globulin 3.1 g/dL (1.3-3.2); Glucose 367 mg/dl (74-100); Total Protein,Serum 7.3 g/dl (6.3-8.2)
[2024-01-19] MEDS: ONDANSETRON 4MG ODT 16 MG (10:32)
[2024-01-19] MEDS: SODIUM CHLORIDE 0.9% IV ×2 (11:00→11:21)
[2024-01-19] MEDS: PEMETREXED DISODIUM IV (11:00)
[2024-01-19 11:05] VITALS: BP 138/73; PULSE 85; RESP 18; TEMP 36.6; O2SAT 95
[2024-01-19] MEDS: 0.9 % SODIUM CHLORIDE 100 ML IV (11:05)
[2024-01-19 11:20] VITALS: RESP 18
[2024-01-19] MEDS: CARBOPLATIN IV (11:21)
[2024-01-19 11:25] VITALS: BP 133/70; PULSE 77; RESP 18
[2024-01-19 11:40] VITALS: BP 137/67; PULSE 79; RESP 18
[2024-01-19 11:56] VITALS: RESP 18
[2024-01-19] MEDS: SODIUM CHLORIDE 0.9% 10ML FLUSH SYRINGE 10 ML IV (11:59)
[2024-01-19 12:04] VITALS: BP 137/74; PULSE 82; RESP 18; O2SAT 96
== END 2024-01-19 12:04 | disposition home or self-care (01) ==
LOC: INF 09:38
PROVIDERS: PCP Internal Medicine Adolescent Medicine; Visit Provider Internal Medicine Medical Oncology
DX: C34.12 Malignant neoplasm of upper lobe, left bronchus or lung (principal); Z79.899 Other long term (current) drug therapy
CPT/HCPCS: 80053; 85025; 96413; 96417; J1642; J9045; J9305; Q0164

== ENCOUNTER 2024-02-09 09:50 | Outpatient (CLI) | payer OTHER, SELFPAY ==
[2024-02-09 09:58] VITALS: BMI 29.4
[2024-02-09 10:20] LABS: Basophils % 0.4 % (0.1-2.0); Eosinophils % 0.2 % (0.1-12.0); Hematocrit 35.6 % (37.0-47.0); Hemoglobin 11.8 g/dL (12.2-16.2); Lymphocytes # 0.9 K/mm3 (0.7-4.5); Lymphocytes % 9.2 % (10-50); Mean Corpuscular HGB Conc 33.2 g/dL (31.8-35.4); Mean Corpuscular Hemoglobin 31.5 pg (27.0-31.2); Mean Corpuscular Volume 94.8 fl (81-99); Mean Platelet Volume 8.8 fl (7.4-10.4); Monocytes # 0.4 K/mm3 (0.1-1.0); Neutrophils # 8.7 K/mm3 (1.8-7.8); Neutrophils % 86.3 % (37.0-80.0); Platelet Count 401 K/mm3 (142-424); Red Blood Count 3.76 M/mm3 (4.20-5.40); Red Cell Distribution Width 16.5 % (11.5-17.5); White Blood Count 10.1 K/mm3 (4.8-10.8)
[2024-02-09 10:23] LABS: MANUAL DIFFERENTIAL MANUAL DIFFERENTIAL (MANUAL DIFF)
[2024-02-09 10:27] LABS: Chloride 101 mmol/L (98-107); Potassium 4.1 mmoL/L (3.5-5.1); Sodium 136 mmol/L (136-145)
[2024-02-09 10:30] LABS: Alanine Aminotransferase 20 U/L (12-78); Albumin/Globulin Ratio 1.3 (1.1-1.8); Alkaline Phosphatase 133 U/L (38-126); Anion Gap 8.1 mEq/L (5-15); Aspartate Amino Transferase 23 U/L (14-36); Bilirubin,Total 0.3 mg/dl (0.2-1.3); Blood Urea Nitrogen 11 mg/dl (7-17); Calcium 9.4 mg/dl (8.4-10.2); Carbon Dioxide 31 mmol/L (22.0-30.0); Creatinine Clearance Estimated 72 mL/min (50-200); Estimated Glomerular Filt Rate 101 ml/min (>60); GFR (African American) 122 ML/MIN (>60); Globulin 3.1 g/dL (1.3-3.2); Glucose 275 mg/dl (74-100); Total Protein,Serum 7.1 g/dl (6.3-8.2)
[2024-02-09 10:57] LABS: Lymphocytes % 12 % (10-50); Macrocytosis 1+; Monocytes % 2 % (2-9); Neutrophils % 83 % (42-76); Total Cells Counted 100
[2024-02-09 10:58] LABS: Stomatocytes 1+
[2024-02-09] MEDS: VITAMIN B-12 1,000 MCG 1ML VIAL 1000 MCG IM (11:30)
[2024-02-09 11:31] VITALS: BP 132/72; PULSE 80; RESP 18; TEMP 36.4; O2SAT 96
[2024-02-09] MEDS: ONDANSETRON 4MG ODT 16 MG SL (11:31)
[2024-02-09 12:04] VITALS: BP 137/83; PULSE 85; RESP 18; O2SAT 97
[2024-02-09 12:45] VITALS: BP 139/77; PULSE 83; RESP 18; O2SAT 97
[2024-02-09] MEDS: PEMETREXED DISODIUM IV (12:46)
[2024-02-09] MEDS: SODIUM CHLORIDE 0.9% IV (12:46)
[2024-02-09 13:02] VITALS: BP 140/76; PULSE 83; RESP 18; O2SAT 97
[2024-02-09] MEDS: SODIUM CHLORIDE 0.9% 10ML FLUSH SYRINGE 10 ML IV (13:23)
[2024-02-09] MEDS: SODIUM CHLORIDE 0.9% 100ML BAG 100 ML IV (13:25)
== END 2024-02-09 13:05 | disposition home or self-care (01) ==
LOC: INF 09:51
PROVIDERS: PCP Internal Medicine Adolescent Medicine; Visit Provider Internal Medicine Medical Oncology
DX: Z51.11 Encounter for antineoplastic chemotherapy (principal); C34.12 Malignant neoplasm of upper lobe, left bronchus or lung; Z79.899 Other long term (current) drug therapy; Z87.891 Personal history of nicotine dependence
CPT/HCPCS: 80053; 85007; 85025; 85027; 96411; 96413; J1642; J3420; J9045; J9305

== ENCOUNTER 2024-02-18 11:30 | Emergency (ER) | payer OTHER, SELFPAY ==
[2024-02-18 11:31] VITALS: BP 155/94; PULSE 105; RESP 16; TEMP 36.8; O2SAT 98; BMI 29.4
[2024-02-18 11:38] VITALS: PULSE 103; O2SAT 98
[2024-02-18 12:00] VITALS: BP 133/80; PULSE 106; O2SAT 93
--- NOTE | 2024-02-18 12:24 | ED_ITS ---
Discharge Plan Disposition Patient Disposition: Home, Self-Care Prescriptions Prescriptions: New lidocaine 5 % adhesive patch,medicated 1 patch topical DAILY Qty: 30 0RF Rx Instructions: leave on most painful area for up to 12 hrs methocarbamol 750 mg tablet 750 mg PO Q8H Qty: 30 0RF No Action Treleelinor Ellipta 200-62.5-25 mcg blister with device 1 inh inhalation DAILY Patient Comments: INHALE 1 PUFF ONCE DAILY hydrocodone-acetaminophen 1 EACH tablet 1 each PO TIDP PRN (Reason: PAIN) hydrochlorothiazide 25 MG tablet 25 mg PO DAILY gabapentin 100 MG capsule 200 mg PO HS prochlorperazine maleate [Compazine] 10 mg Tablet 10 mg PO Q6HP PRN (Reason: Nausea And Vomiting) ondansetron 8 mg Tablet,Disintegrating 8 mg PO Q8HP PRN (Reason: Nausea And Vomiting) dexamethasone 4 mg Tablet 4 mg PO DIRECTED Rx Instructions: Take 4mg po bid the day before, the day of, and the day after chemo treatment folic acid 1 mg Tablet 1 mg PO DAILY Referrals Follow up/Referrals: Kameron Gray MD [Primary Care Provider] - See instructions Activity Restrictions/Add. Instructions Additional Instructions/Restrictions: Take 1000 mg of Tylenol every 6 hours scheduled. Take other medicines as prescribed. Use ice over the affected area. Return to the emergency department if you develop numbness, weakness, tingling, urinary incontinence, unable to tolerate the pain despite above medications. Please follow up with your primary care provider in 2-3 days. Please return to ED if your symptoms worsen, change in location, change in severity, new symptoms develop or if you become concerned for your health. Clinical Impressions Clinical Impression: Back muscle spasm Instructions Patient Instructions: DI for Low Back Pain Discharge ED Provider: Jamey Castillo Adult HPI General Chief complaint: Back Pain/Injury Stated complaint: lower back pain Time Seen by Provider: 02/18/24 12:10 Mode of Arrival: Ambulatory Source of Information: Patient Limitations: No Limitations Description of Symptoms (Recalled from ER Triage Doc. by RN): c/o lower back pain that started yesterday afternoon, pt states that if she moves or turns a certain way the pain is severe. she is concerned that due to her chemo or lung sx in november is causing this issue. No injury that is noted History of Present Illness HPI narrative: Patient is a 63-year-old female with history of lung cancer on chemo, diabetes, chronic back pain. Patient reports today after right-sided back pain. She denies any preceding trauma. She reports that it is in the lumbar region, in the paraspinal area off to the right and feels like spasms . She reports that the pain is worse with twisting. She denies any difficulties urinating, increased urination or decreased, hematuria, fevers. Denies any new numbness weakness tingling in her legs. She is able to ambulate it is just painful. Related Data Home Medications Medication Instructions Recorded Confirmed gabapentin 100 mg capsule 200 mg PO HS BACK PAIN 01/17/21 02/09/24 hydrochlorothiazide 25 mg tablet 25 mg PO DAILY Hypertension 01/17/21 02/09/24 hydrocodone 5 mg-acetaminophen 325 1 each PO TIDP PRN PAIN 01/17/21 02/09/24 mg tablet fluticasone fur. 200 mcg-umeclid 1 inh inhalation DAILY 12/10/23 02/09/24 62.5 mcg-vilant 25 mcg inhalat.powder (Trelegy Ellipta) dexamethasone 4 mg tablet 4 mg PO DIRECTED chemo 12/29/23 02/09/24 premedication folic acid 1 mg tablet 1 mg PO DAILY 12/29/23 02/09/24 ondansetron 8 mg disintegrating 8 mg PO Q8HP PRN Nausea And 12/29/23 02/09/24 tablet Vomiting prochlorperazine maleate 10 mg 10 mg PO Q6HP PRN Nausea And 12/29/23 02/09/24 tablet (Compazine) Vomiting Previous Rx's Medication Instructions Recorded lidocaine 5 % topical patch 1 patch topical DAILY #30 ea 02/18/24 methocarbamol 750 mg tablet 750 mg PO Q8H #30 tabs 02/18/24 Allergies Allergy/AdvReac Type Severity Reaction Status Date / Time No Known Drug Allergies Allergy Unknown Verified 02/09/24 13:22 [facility] Disclaimer: The information contained in this section may have been updated after the patient was seen, as this information can be updated by other users. Medical History Psoriasis Hypertension Surgical History Hx of lymph node excision Hx of lymph node excision History of lung surgery History of lung surgery Family History Other Breast cancer Family history of cancer Leukemia Lung cancer Prostate cancer Social History Smoking Status: Former smoker tobacco type: cigarettes packs per day: 2 second hand exposure: No alcohol intake: never substance use type: denies use current occupational status: employed Travel in the last 8 weeks: None household members: family housing: house current occupation: [employer] current occupational exposures/hazards: No caffeine: Yes ROS Obtained: Yes Systems reviewed as appropriate & no additional complaints except as documented Musculoskeletal Musculoskeletal: Reports back pain Physical Exam General General appearance: alert and in no apparent distress Head Head exam: atraumatic and normocephalic Eye Eye exam: Present normal appearance Chest Chest inspection: Present symmetric chest wall rise Respiratory Respiratory exam: Absent respiratory distress or stridor Cardiovascular Cardiovascular exam: Present regular rate and normal rhythm Abdominal Exam Abdominal exam: Absent distention Extremities Exam Extremities exam: Present normal inspection and full ROM Back Exam Back exam: Present tenderness (Tender palpation over the paraspinal lumbar region where there is obvious muscle spasm that is active on the right lumbar area, especially when compared with left.) and muscle spasm; Absent vertebral tenderness Neurological Exam Neurological exam: Present alert and oriented X3; Absent motor sensory deficit Psychiatric Psychiatric exam: Present normal mood Skin Skin exam: Present warm and dry Medical Decision Making Medical Records Medical records reviewed: Yes I reviewed the patient's medical records. Negrito Inquiry Pt receiving controlled substance: No Vital Signs: 02/18/24 11:31 02/18/24 11:38 02/18/24 12:00 Temperature 98.3 F Temperature Source Oral Pulse Rate 103 H 106 H Pulse Rate [Left Radial] 105 H Respiratory Rate 16 Blood Pressure 133/80 Blood Pressure [Right Arm] 155/94 H Blood Pressure Mean [Right Arm] 114 Blood Pressure Source [Right Arm] Automatic Cuff Blood Pressure Position [Right Arm] Sitting 02 Sat by Pulse Oximetry 98 98 93 L Oxygen Delivery Method Room Air Room Air Orders (Tests/Meds): ED MEDICATIONS Discontinued Medications Generic Name Dose Route Start Last Admin Trade Name Freq PRN Reason Stop Dose Admin Acetaminophen 1,000 mg 02/18/24 12:21 02/18/24 12:37 Acetaminophen 500mg Tab PO 02/18/24 12:22 1,000 mg ONCE ONE Administration Diazepam 5 mg 02/18/24 12:21 02/18/24 12:37 Diazepam 5mg Tablet PO 02/18/24 12:22 5 mg ONCE ONE Administration Lidocaine 1 each 02/18/24 12:21 02/18/24 12:37 Lidocaine 5% Transdermal Patch TP 02/18/24 12:22 1 each ONCE ONE Administration Medical Decision Narrative: In summary, this 63-year-old female presents to the emergency department today w ith back spasm. On initial evaluation patient is alert and oriented, appears uncomfortable and is sitting in a chair. She reports when she lays flat the pain is worse. She reports it is made worse with twisting movements. She has an active muscle spasm on my palpation on the right which is tender in the muscular region. She is denying any hematuria, dysuria, fevers.. Differential diagnosis includes but is not limited to muscle spasm, fracture, dislocation. Based on these concerns, I ordered Valium for muscle spasm, Tylenol, lidocaine patch. I considered Toradol, however patient is not allowed to take NSAIDs due to her active chemo. I considered obtaining plain films or advanced cross- sectional imaging, however this was deferred given the patient had no midline tenderness and had no preceding trauma. She is neurovascularly intact on my examination.. On reassessment patient reports improvement in her pain. She is able to ambulate in the emergency department. She remains neurovascularly intact. I will send her with Robaxin, lidocaine patches and Tylenol scheduled. She will follow-up with her primary care doctor. At this time it was felt that the patient was safe to be discharged home. The patient was in agreement with this plan. The patient was given strict return precautions prior to being discharged from the emergency department. Critical Care Critical Care Time Critical Care Time: No
[2024-02-18] MEDS: LIDOCAINE 5% TRANSDERMAL PATCH 1 EACH TP (12:37)
[2024-02-18] MEDS: ACETAMINOPHEN 500MG TAB 1000 MG PO (12:37)
[2024-02-18] MEDS: diazePAM 5MG TABLET 5 MG PO (12:37)
[2024-02-18 13:54] VITALS: BP 136/85; PULSE 77; O2SAT 95
[2024-02-18 14:04] VITALS: BP 136/85; PULSE 77; RESP 16; TEMP 36.8; O2SAT 95
== END 2024-02-18 14:05 | disposition home or self-care (01) ==
PROVIDERS: Emergency Provider Emergency Medicine; PCP Internal Medicine Adolescent Medicine
DX: M54.50 Low back pain, unspecified (principal); M62.830 Muscle spasm of back; C34.90 Malignant neoplasm of unspecified part of unspecified bronchus or lung; Z92.21 Personal history of antineoplastic chemotherapy; I10 Essential (primary) hypertension; Z87.891 Personal history of nicotine dependence
CPT/HCPCS: 99283

== ENCOUNTER 2024-03-01 10:18 | Outpatient (CLI) | payer OTHER, SELFPAY ==
--- NOTE | 2024-03-01 10:24 | XR_ITS ---
FINAL REPORT CLINICAL HISTORY: .hip pain..no trauma..lung cancer pt FINDINGS: RIGHT HIP Two views of the right hip demonstrate no acute fracture or dislocation. The joint spaces appear normal. The visualized bony structures are well aligned. No soft tissue abnormality is seen. IMPRESSION: No acute bony abnormality. Reviewed, Interpreted and Dictated by Shin Paris MD Transcribed by Trish Banuelos Authenticated and [facility]
--- NOTE | 2024-03-01 10:24 | XR_ITS ---
FINAL REPORT CLINICAL HISTORY: no trauma..lung cancer patient..hip pain FINDINGS: LEFT HIP: Two views of the left hip demonstrate no acute fracture or dislocation. There are mild degenerative changes. The visualized bony structures are well aligned. No soft tissue abnormality is seen. IMPRESSION: No acute bony abnormality. Reviewed, Interpreted and Dictated by Shin Paris MD Transcribed by Trish Banuelos Authenticated and [facility][1]
--- NOTE | 2024-03-01 10:25 | XR_ITS ---
FINAL REPORT CLINICAL HISTORY: ACUTE RIGHT SIDE PAIN, BACK PAIN .hip pain..no trauma..lung cancer pt FINDINGS: LUMBAR SPINE 5 views were obtained. There is no acute fracture. Vertebrae are normal height. There is moderate dextroscoliosis. Mild diffuse degenerative disc disease is present. There is advanced facet arthropathy in the lower lumbar spine. There is no soft tissue abnormality. IMPRESSION: Moderate degenerative changes. Reviewed, Interpreted and Dictated by Shin Paris MD Transcribed by Trish Banuelos Authenticated and [facility]
[2024-03-01 10:32] VITALS: BMI 29.6
[2024-03-01 10:40] VITALS: BP 145/75; PULSE 93; RESP 18; TEMP 36.3; O2SAT 95
[2024-03-01 10:56] LABS: Basophils % 0.3 % (0.1-2.0); Eosinophils # 0.2 K/mm3 (0.0-0.4); Eosinophils % 2.8 % (0.1-12.0); Hematocrit 25.5 % (37.0-47.0); Hemoglobin 8.4 g/dL (12.2-16.2); Lymphocytes # 0.6 K/mm3 (0.7-4.5); Mean Corpuscular Hemoglobin 32.8 pg (27.0-31.2); Mean Corpuscular Volume 99.6 fl (81-99); Mean Platelet Volume 8.9 fl (7.4-10.4); Monocytes # 0.2 K/mm3 (0.1-1.0); Monocytes % 3.8 % (1.7-9.3); Neutrophils # 4.5 K/mm3 (1.8-7.8); Platelet Count 302 K/mm3 (142-424); Red Blood Count 2.56 M/mm3 (4.20-5.40); Red Cell Distribution Width 17.1 % (11.5-17.5); White Blood Count 5.5 K/mm3 (4.8-10.8)
[2024-03-01 11:01] LABS: Chloride 101 mmol/L (98-107); Sodium 137 mmol/L (136-145)
[2024-03-01 11:02] LABS: Potassium 3.5 mmoL/L (3.5-5.1)
[2024-03-01 11:04] LABS: Alanine Aminotransferase 17 U/L (12-78); Alkaline Phosphatase 127 U/L (38-126); Anion Gap 8.5 mEq/L (5-15); Aspartate Amino Transferase 21 U/L (14-36); Bilirubin,Total 0.3 mg/dl (0.2-1.3); Blood Urea Nitrogen 12 mg/dl (7-17); Carbon Dioxide 31 mmol/L (22.0-30.0); Creatinine Clearance Estimated 72 mL/min (50-200); Estimated Glomerular Filt Rate 101 ml/min (>60); GFR (African American) 122 ML/MIN (>60)
[2024-03-01 11:05] LABS: Albumin/Globulin Ratio 1.3 (1.1-1.8); Calcium 9.2 mg/dl (8.4-10.2); Globulin 3.2 g/dL (1.3-3.2); Glucose 194 mg/dl (74-100); Total Protein,Serum 7.2 g/dl (6.3-8.2)
[2024-03-01 11:59] LABS: Iron 70 ug/dL (37-170)
[2024-03-01 12:09] LABS: Total Iron Binding Capacity 314 ug/dL (265-497)
[2024-03-01 12:15] VITALS: BP 142/68; PULSE 73; RESP 18; TEMP 36.7; O2SAT 98
[2024-03-01 12:30] VITALS: BP 134/65; PULSE 76
[2024-03-01 12:37] LABS: Ferritin 216 ng/ml (11.1-264)
[2024-03-01 12:50] VITALS: BP 141/64; PULSE 67
[2024-03-01 12:55] VITALS: BP 137/70; PULSE 71
[2024-03-01 13:07] VITALS: BP 136/72; PULSE 69
== END 2024-03-01 23:59 | disposition home or self-care (01) ==
LOC: INF 10:20
PROVIDERS: PCP Internal Medicine Adolescent Medicine; Visit Provider Internal Medicine Medical Oncology
DX: Z51.11 Encounter for antineoplastic chemotherapy (principal); C34.12 Malignant neoplasm of upper lobe, left bronchus or lung; Z79.899 Other long term (current) drug therapy; Z87.891 Personal history of nicotine dependence; M54.41 Lumbago with sciatica, right side; M54.42 Lumbago with sciatica, left side
CPT/HCPCS: 36591; 72110; 73502; 80053; 82728; 83540; 83550; 85025; 96411; 96413; J9045; J9305; Q0164

== ENCOUNTER 2024-03-08 10:12 | Outpatient (CLI) | payer OTHER, SELFPAY ==
--- NOTE | 2024-03-08 | MR_ITS ---
FINAL REPORT CLINICAL HISTORY: lung cancer lower back pain 15 ml prohance COMPARISON: None FINDINGS: Multiplanar MR imaging of the lumbar spine was performed without and with contrast. On the sagittal T2-weighted images, disc degeneration is seen at multiple levels with loss of disc height. Mild lumbar dextroscoliosis is present of approximately 20 degrees. There is abnormal signal in the anterior aspect of an upper lumbar vertebra that appears to represent the L1 vertebral body, as well as in the spinous process of that vertebra measuring 2 cm in size. There is extensively of abnormal signal in the L2 body which extends into the right pedicle. There is abnormal signal present in the right sacral ala measuring 2.4 cm in diameter, all consistent with metastatic disease. There is no evidence of fracture. The conus is seen at approximately the L1 level and has an unremarkable appearance. L1-2: An annular bulge is present. No significant canal stenosis or neuroforaminal narrowing is seen. L2-3: An annular bulge is present. No significant canal stenosis or neuroforaminal narrowing is seen. L3-4: An annular bulge is present. No significant canal stenosis or neuroforaminal narrowing is seen. L4-5: A moderate annular bulge is present with severe right and moderate left neural foraminal narrowing and facet osteoarthropathy. L5-S1: An annular bulge is present. No significant canal stenosis or neuroforaminal narrowing is seen. No abnormal contrast enhancement is identified. IMPRESSION: Multilevel mild degenerative disc disease and spondylosis with areas of neural foraminal narrowing as described, most prominent at the L4-5 level. Multilevel abnormal signal involving the L1, L2 vertebral bodies and the sacrum particularly on the right side, all consistent with metastatic disease. Reviewed, Interpreted and Dictated by Kwan Rahman MD Transcribed by Goldie Be Authenticated and [facility]
--- NOTE | 2024-03-08 | MR_ITS ---
FINAL REPORT CLINICAL HISTORY: LUNG CANCER upper back pain 15 ml prohance COMPARISON: None FINDINGS: Multiplanar MR imaging of the thoracic spine was performed without and with contrast. On the sagittal T2-weighted images, there is abnormal decreased signal throughout the thoracic disks. There is abnormal signal in the T7 vertebral body, with decreased signal on T1-weighted images and increased signal on STIR images. At the T7 level there is mild loss of vertebral body height of approximately 10%. In this patient with known lung carcinoma the appearance is worrisome for metastatic disease. There is also abnormal signal involving the left pedicle of the T5 vertebral body. There is a similar focus in the anterior portion of the L2 vertebral body seen at the edge of the film and will be described further on the MRI of the lumbar spine examination. No evidence of cord compression is seen. No abnormal cord enhancement is identified. There is no malalignment. The thoracic cord demonstrates normal signal and configuration. There is no evidence of significant canal stenosis. On the axial images, there is no significant disc bulge or protrusion. On the postcontrast images, no abnormal contrast enhancement is identified. IMPRESSION: Abnormal signal is present in the T7 vertebral body, with mild loss of vertebral body height of approximately 10%, worrisome for metastasis in this patient with known lung carcinoma. There is also abnormal signal in the left pedicle of L5. The lumbar spine involvement will be discussed in the lumbar spine dictation from the same date. No evidence of significant disc herniation or cord enhancement is seen. Reviewed, Interpreted and Dictated by Kwan Rahman MD Transcribed by Goldie Be Authenticated and . [facility]
[2024-03-08] MEDS: GADOTERIDOL INJ 20ML SYRINGE 15 ML IV (12:24)
[2024-03-08] MEDS: SODIUM CHLORIDE 0.9% 10ML SYR (RAD ONLY) 10 ML IV (12:24)
== END 2024-03-08 23:59 | disposition home or self-care (01) ==
LOC: RAD 10:12
PROVIDERS: PCP Internal Medicine Adolescent Medicine; Visit Provider Internal Medicine Medical Oncology
DX: C34.12 Malignant neoplasm of upper lobe, left bronchus or lung (principal)
CPT/HCPCS: 72157; 72158; A9576

== ENCOUNTER 2024-03-25 11:45 | Outpatient (CLI) | payer OTHER, SELFPAY ==
[2024-03-25] MEDS: SODIUM CHLORIDE 0.9% 10ML FLUSH SYRINGE 10 ML IV (11:35)
--- NOTE | 2024-03-25 11:48 | MR_ITS ---
FINAL REPORT CLINICAL HISTORY: KNOWN SPINE/ LUNG CANCER pt has a lump on the right side of her head, attempted to put marker near lump COMPARISON: None FINDINGS: Multiplanar MR imaging of the brain was performed without and with contrast. There is mild age-appropriate atrophy. There is a contrast-enhancing mass in the right posterior parietal bone that measures 14 cm in size, consistent with a metastasis in this patient with known lung cancer. There is some adjacent dural thickening and enhancement, consistent with intracranial extension. The underlying brain tissue itself is unremarkable. Scattered foci of increased T2 signal are seen in the cerebral white matter that have a nonspecific appearance but likely represent mild chronic ischemic/gliotic changes. There is no evidence of intracranial hemorrhage or mass. No abnormal ventricular dilatation is identified. There is no evidence of shift of the midline structures. No abnormal extra-axial fluid collection is seen. No area of abnormal restricted diffusion is identified. The posterior fossa and brainstem have an unremarkable appearance. No abnormal contrast enhancement is seen. Normal major vessel vascular flow voids are seen. IMPRESSION: Mild atrophy and chronic ischemic/gliotic changes. Contrast-enhancing mass in the right parietal bone, 14 cm in size, consistent with a metastasis. There is also some adjacent dural thickening and enhancement consistent with intracranial extension, although the underlying parieto-occipital lobe appears unremarkable. Reviewed, Interpreted and Dictated by Arnulfo Hu III, MD Transcribed by Goldie Be Authenticated and [facility]
[2024-03-25] MEDS: GADOTERIDOL INJ 20ML SYRINGE 17 ML IV (12:54)
[2024-03-25] MEDS: SODIUM CHLORIDE 0.9% 10ML SYR (RAD ONLY) 10 ML IV (12:54)
== END 2024-03-25 12:55 | disposition home or self-care (01) ==
LOC: RAD 11:46 → INF 13:10
PROVIDERS: PCP Internal Medicine Adolescent Medicine; Visit Provider Internal Medicine Medical Oncology
DX: C34.12 Malignant neoplasm of upper lobe, left bronchus or lung (principal)
CPT/HCPCS: 70553; A9576; J1642

== ENCOUNTER 2024-04-05 10:27 | Outpatient (CLI) | payer OTHER, SELFPAY ==
[2024-04-05 10:27] VITALS: BMI 27.3
[2024-04-05 10:52] LABS: Albumin Level 4.1 g/dl (3.5-5.0); Chloride 98 mmol/L (98-107); Sodium 136 mmol/L (136-145)
[2024-04-05 10:53] LABS: Potassium 4.1 mmoL/L (3.5-5.1)
[2024-04-05 10:55] LABS: Alanine Aminotransferase 15 U/L (12-78); Anion Gap 9.1 mEq/L (5-15); Aspartate Amino Transferase 26 U/L (14-36); Blood Urea Nitrogen 10 mg/dl (7-17); Carbon Dioxide 33 mmol/L (22.0-30.0); Creatinine Clearance Estimated 67 mL/min (50-200); Estimated Glomerular Filt Rate 124 ml/min (>60); GFR (African American) 150 ML/MIN (>60)
[2024-04-05 10:56] LABS: Albumin/Globulin Ratio 1.2 (1.1-1.8); Alkaline Phosphatase 165 U/L (38-126); Bilirubin,Total 0.9 mg/dl (0.2-1.3); Calcium 9.2 mg/dl (8.4-10.2); Globulin 3.4 g/dL (1.3-3.2); Glucose 94 mg/dl (74-100); Total Protein,Serum 7.5 g/dl (6.3-8.2)
[2024-04-05 11:04] LABS: Basophils % 0.3 % (0.1-2.0); Eosinophils % 0.2 % (0.1-12.0); Hematocrit 38.4 % (37.0-47.0); Lymphocytes # 1.3 K/mm3 (0.7-4.5); Lymphocytes % 14.5 % (10-50); Mean Corpuscular HGB Conc 31.3 g/dL (31.8-35.4); Mean Corpuscular Hemoglobin 32.5 pg (27.0-31.2); Mean Corpuscular Volume 103.9 fl (81-99); Mean Platelet Volume 8.3 fl (7.4-10.4); Monocytes # 0.7 K/mm3 (0.1-1.0); Monocytes % 8.2 % (1.7-9.3); Neutrophils % 76.9 % (37.0-80.0); Platelet Count 327 K/mm3 (142-424); White Blood Count 9.1 K/mm3 (4.8-10.8)
== END 2024-04-05 10:31 | disposition home or self-care (01) ==
LOC: INF 10:27
PROVIDERS: PCP Internal Medicine Adolescent Medicine; Visit Provider Internal Medicine Medical Oncology
DX: C34.12 Malignant neoplasm of upper lobe, left bronchus or lung (principal)
CPT/HCPCS: 36591; 80053; 85025; J1642

== ENCOUNTER 2024-04-14 12:55 | Outpatient (CLI) | payer OTHER, SELFPAY ==
[2024-04-14 13:23] VITALS: BP 126/63; PULSE 95; RESP 16; TEMP 36.6; O2SAT 93
[2024-04-14] MEDS: ZOLEDRONIC ACID 4 MG in 0.9 % SODIUM CHLORIDE 100 ML 420 MG IV (13:23)
[2024-04-14] MEDS: SODIUM CHLORIDE 0.9% 50ML BAG 50 ML IV (13:23)
[2024-04-14 13:45] VITALS: BP 140/72; PULSE 91; RESP 16; TEMP 36.6; O2SAT 94
[2024-04-14] MEDS: SODIUM CHLORIDE 0.9% 10ML FLUSH SYRINGE 10 ML IV (13:45)
== END 2024-04-14 13:50 | disposition home or self-care (01) ==
LOC: INF 12:57
PROVIDERS: PCP Internal Medicine Adolescent Medicine; Visit Provider Internal Medicine Medical Oncology
DX: C34.12 Malignant neoplasm of upper lobe, left bronchus or lung (principal)
CPT/HCPCS: 96374; J1642; J3489

== ENCOUNTER 2024-04-20 13:25 | Outpatient (CLI) | payer OTHER, SELFPAY ==
[2024-04-20 13:29] VITALS: BMI 28.1
[2024-04-20] MEDS: SODIUM CHLORIDE 0.9% 10ML FLUSH SYRINGE 10 ML IV (13:30)
[2024-04-20 13:50] LABS: Albumin Level 3.6 g/dl (3.5-5.0); Chloride 94 mmol/L (98-107); Potassium 4.5 mmoL/L (3.5-5.1); Sodium 129 mmol/L (136-145)
[2024-04-20 13:52] LABS: Alanine Aminotransferase 24 U/L (12-78); Aspartate Amino Transferase 27 U/L (14-36); Blood Urea Nitrogen 11 mg/dl (7-17); Creatinine Clearance Estimated 69 mL/min (50-200); Estimated Glomerular Filt Rate 124 ml/min (>60); GFR (African American) 150 ML/MIN (>60)
[2024-04-20 13:53] LABS: Albumin/Globulin Ratio 1.1 (1.1-1.8); Alkaline Phosphatase 129 U/L (38-126); Anion Gap 7.5 mEq/L (5-15); Bilirubin,Total 0.8 mg/dl (0.2-1.3); Calcium 6.5 mg/dl (8.4-10.2); Carbon Dioxide 32 mmol/L (22.0-30.0); Globulin 3.3 g/dL (1.3-3.2); Glucose 251 mg/dl (74-100); Magnesium 2.3 mg/dl (1.6-2.3); Total Protein,Serum 6.9 g/dl (6.3-8.2)
[2024-04-20 14:02] LABS: Basophils % 0.1 % (0.1-2.0); Eosinophils % 0.1 % (0.1-12.0); Hematocrit 35.7 % (37.0-47.0); Hemoglobin 10.9 g/dL (12.2-16.2); Lymphocytes # 0.5 K/mm3 (0.7-4.5); Lymphocytes % 5.2 % (10-50); Mean Corpuscular HGB Conc 30.6 g/dL (31.8-35.4); Mean Corpuscular Hemoglobin 31.5 pg (27.0-31.2); Mean Corpuscular Volume 102.9 fl (81-99); Mean Platelet Volume 9.7 fl (7.4-10.4); Monocytes # 0.5 K/mm3 (0.1-1.0); Neutrophils # 8.9 K/mm3 (1.8-7.8); Neutrophils % 89.6 % (37.0-80.0); Platelet Count 333 K/mm3 (142-424); Red Blood Count 3.47 M/mm3 (4.20-5.40); Red Cell Distribution Width 15.5 % (11.5-17.5); White Blood Count 9.9 K/mm3 (4.8-10.8)
[2024-04-20 14:05] LABS: MANUAL DIFFERENTIAL MANUAL DIFFERENTIAL (MANUAL DIFF)
[2024-04-20 14:42] LABS: Lymphocytes % 8 % (10-50); Macrocytosis 1+; Monocytes % 2 % (2-9); Neutrophils % 90 % (42-76); Total Cells Counted 100
[2024-04-20 14:43] LABS: Platelet Estimate Normal
== END 2024-04-20 13:45 | disposition home or self-care (01) ==
LOC: INF 13:26
PROVIDERS: PCP Internal Medicine Adolescent Medicine; Visit Provider Internal Medicine Medical Oncology
DX: C34.00 Malignant neoplasm of unspecified main bronchus (principal)
CPT/HCPCS: 36591; 80053; 83735; 85007; 85025; 85027; J1642

== ENCOUNTER 2024-05-01 04:04 | Emergency (ER) | payer OTHER, SELFPAY ==
--- NOTE | 2024-05-01 04:11 | ECG_ITS ---
APPROVED REPORT Exam: Resting ECG HR:102 bpm ECG Measurements Heart Rate 102 AXES IN 155 P 59 QRSd 66 QRS 67 QT 305 T 75 QTc 363 Conclusion SINUS TACHYCARDIA WITH OCCASIONAL VENTRICULAR PREMATURE COMPLEXES SEPTAL MYOCARDIAL INFARCTION , PROBABLY OLD [40+ ms Q WAVE IN V1/V2] ABNORMAL ECG Electronically signed by : VIRGILIO THORNTON, 05/01/2024 16:16:09
--- NOTE | 2024-05-01 04:11 | CT_ITS ---
PROCEDURE INFORMATION: Exam: CTA Chest With Contrast Exam date and time: 05/01/2024 5:00 AM Age: 63 years old Clinical indication: Cough and shortness of breath; Additional info: Cancer, painful cough, SOA TECHNIQUE: Imaging protocol: Computed tomographic angiography of the chest with contrast. Exam focused on the arteries. 3D rendering (Not supervised by radiologist): MIP and/or 3D reconstructed images were created by the technologist. Radiation optimization: All CT scans at this facility use at least one of these dose optimization techniques: automated exposure control; mA and/or kV adjustment per patient size (includes targeted exams where dose is matched to clinical indication); or iterative reconstruction. Contrast material: ISOUVE 370; Contrast volume: 70 ml; Contrast route: INTRAVENOUS (IV); COMPARISON: CT CHEST WO CON 07/21/2023 2:20 PM FINDINGS: Pulmonary arteries: Normal. No pulmonary emboli. Aorta: Unremarkable. No aortic aneurysm. No aortic dissection. Lungs: Mild centrilobular emphysema. Pleural spaces: Small left-sided pleural effusion. Heart: Unremarkable. No cardiomegaly. No pericardial effusion. Coronary arteries: Coronary atherosclerosis. Lymph nodes: Left hilar lymphadenopathy is noted. This appears to be partly calcified. Subcarinal adenopathy is also noted measuring 1.5 cm. Left upper mediastinal lymphadenopathy is seen in the AP window extending superiorly these lymph nodes measure up to 1.5 cm. Bones/joints: T7 compression fracture which is a proximally 50-75% loss of height. There is minimal posterior displacement of the vertebral body narrowing the canal. Lucency is seen centrally suggestive of metastatic disease. Focal lucency is also seen anteriorly in L2 consistent with probable metastatic disease. Focal lytic lesion is also seen in the left 9th lateral rib, this may also be fractured. Soft tissues: Unremarkable. IMPRESSION: 1. No evidence of pulmonary embolus. 2. Interval progression of the left hilar mass and mediastinal lymphadenopathy consistent with known residual lung carcinoma. 3. Interval progression of the T7 pathologic compression fracture, now exceeding 50% loss of height with posterior retropulsion of the vertebral body into the canal, consider MRI for further characterization of possible cord impingement. 4. Additional metastatic disease is seen in the L2 vertebral body as well as the left lateral 9th rib. COMMENTS: The presence of pulmonary emphysema on CT is an independent risk factor for lung cancer. In the absence of a history or active diagnosis of lung cancer, it is recommended that this patient with emphysema be evaluated for enrollment in a low dose CT lung cancer screening program.
--- NOTE | 2024-05-01 04:19 | [facility].EDCP ---
Discharge Plan Disposition Patient Disposition: Home, Self-Care Condition: Fair Chief Complaint: Shortness of Breath/Dyspnea Prescriptions Prescriptions: New Mucinex DM 30-600 mg tablet extended release 12 hr 1 tab PO BID PRN (Reason: cough) Qty: 10 0RF No Action Trelegy Ellipta 200-62.5-25 mcg blister with device 1 inh inhalation DAILY Patient Comments: INHALE 1 PUFF ONCE DAILY lorazepam [Ativan] 1 mg tablet 1 mg PO HS PRN (Reason: sleep) Qty: 30 0RF hydrocodone-acetaminophen 7.5-325 mg tablet 1 tab PO Q6H Patient Comments: TAKE 1 TABLET BY MOUTH EVERY 6 HOURS oxycodone-acetaminophen 7.5-325 mg tablet 1 tab PO Q6H Patient Comments: TAKE 1 TABLET BY MOUTH EVERY 6 HOURS NEEDED FOR 30 DAYS oxycodone 10 mg tablet See Rx Instructions PO .COMPLEX PRN (Reason: pain) Qty: 120 0RF Rx Instructions: 1-2 orally q 3 hrs PRN; morphine 30 mg tablet extended release 30 mg PO Q12H Qty: 60 0RF gabapentin 300 mg capsule 300 mg PO BID Qty: 60 2RF folic acid 1 mg tablet 1 mg PO DAILY Qty: 30 5RF methylprednisolone [Medrol (Ilya)] 4 mg tablets,dose pack See Rx Instructions PO PER PKG DIR Qty: 21 0RF Rx Instructions: PO PER PKG DIR dexamethasone 4 mg tablet 4 mg PO DIRECTED Qty: 30 0RF Rx Instructions: take one tablet daily x 14 days lactulose 20 gram/30 mL solution 20 g PO DAILY PRN (Reason: constipation) Qty: 1800 2RF Rx Instructions: take 30 ml daily as needed for constipation- may repeat x 1 in 4 hrs if needed lidocaine 5 % adhesive patch,medicated 1 patch topical DAILY Qty: 30 0RF Rx Instructions: leave on most painful area for up to 12 hrs hydrocodone-acetaminophen 1 EACH tablet 1 each PO TIDP PRN (Reason: PAIN) hydrochlorothiazide 25 MG tablet 25 mg PO DAILY prochlorperazine maleate [Compazine] 10 mg Tablet 10 mg PO Q6HP PRN (Reason: Nausea And Vomiting) ondansetron 8 mg Tablet,Disintegrating 8 mg PO Q8HP PRN (Reason: Nausea And Vomiting) Referrals Follow up/Referrals: Kameron Gray MD [Primary Care Provider] - See instructions Activity Restrictions/Add. Instructions Additional Instructions/Restrictions: You were evaluated in the ER and are appropriate for discharge at this time. Continue taking all home medications as previously prescribed. Take the Mucinex if needed for cough. Use the incentive spirometer device as you were shown by respiratory therapy to help keep your lungs open. The spine team will call you for an outpatient appointment. Follow-up with Dr. Huang first thing Thursday morning to discuss pain management. Return to the ER with new, worsening, or otherwise concerning symptoms. Clinical Impressions Clinical Impression: Compression fracture of T7 vertebra, Cough, Metastatic cancer, Hypokalemia Print Language Print Language: French Discharge ED Provider: Leroy Snyder General Chief Complaint: Shortness of Breath/Dyspnea Stated Complaint: SOA,congestion,cough,pain in back Time Seen by Provider: 05/01/24 04:07 History of Present Illness HPI narrative: 63-year-old female with known metastatic lung cancer presents to the ER for complaints of persistent painful cough, shortness of breath. Patient reports her symptoms have been going on for the last 3 days. She reports she had previously been seen for this problem at [facility] ER and prescribed azithromycin which she took without improvement of symptoms. Patient continues having a moderately productive cough, no documented fevers at home. 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 Patient takes multiple narcotic pain medications for management and has not missed any doses of these. Family at bedside is concerned that patient's pain is limiting her from taking full breaths which is causing her shortness of breath. Patient does report that she felt better after taking a breathing treatment at [facility] but was not prescribed this. Patient does report a history of asthma/COPD but does not have breathing treatments or inhalers at home. Patient also reports she has oxygen at home but has not been told to use it so she has not used it. Related Data Home Medications ?Medication ?Instructions ?Recorded ?Confirmed hydrochlorothiazide 25 mg tablet 25 mg PO DAILY Hypertension 01/17/21 04/20/24 hydrocodone 5 mg-acetaminophen 325 1 each PO TIDP PRN PAIN 01/17/21 04/20/24 mg tablet fluticasone fur. 200 mcg-umeclid 1 inh inhalation DAILY 12/10/23 04/20/24 62.5 mcg-vilant 25 mcg inhalat.powder (Trelegy Ellipta) ondansetron 8 mg disintegrating 8 mg PO Q8HP PRN Nausea And 12/29/23 04/20/24 tablet Vomiting prochlorperazine maleate 10 mg 10 mg PO Q6HP PRN Nausea And 12/29/23 04/20/24 tablet (Compazine) Vomiting hydrocodone 7.5 mg-acetaminophen 1 tab PO Q6H 04/05/24 04/20/24 325 mg tablet oxycodone-acetaminophen 7.5 mg-325 1 tab PO Q6H 04/05/24 04/20/24 mg tablet Previous Rx's ?Medication ?Instructions ?Recorded lidocaine 5 % topical patch 1 patch topical DAILY #30 ea 02/18/24 lorazepam 1 mg tablet (Ativan) 1 mg PO HS PRN sleep #30 tabs 03/10/24 folic acid 1 mg tablet 1 mg PO DAILY #30 tabs 03/17/24 methylprednisolone 4 mg tablets in See Rx Instructions PO PER PKG DIR 04/12/24 a dose pack (Medrol (Ilya)) #21 tabs dexamethasone 4 mg tablet 4 mg PO DIRECTED chemo 04/20/24 premedication #30 tabs gabapentin 300 mg capsule 300 mg PO BID #60 caps 04/20/24 lactulose 20 gram/30 mL oral 20 g (30 mL) PO DAILY PRN 04/20/24 solution constipation #1,800 mL morphine 30 mg tablet,extended 30 mg PO Q12H pain #60 tabs 04/20/24 release oxycodone 10 mg tablet See Rx Instructions PO .COMPLEX 04/20/24 PRN pain #120 tabs dextromethorphan-guaifenesin 30 1 tab PO BID PRN cough #10 tabs 05/01/24 mg-600 mg tablet extended hr (Mucinex DM) Allergies Allergy/AdvReac Type Severity Reaction Status Date / Time No Known Drug Allergies Allergy Unknown Verified 04/20/24 11:58 [facility] Disclaimer: The information contained in this section may have been updated after the patient was seen, as this information can be updated by other users. Medical History Psoriasis Hypertension Surgical History Hx of lymph node excision Hx of lymph node excision History of lung surgery History of lung surgery Family History Other Breast cancer Family history of cancer Leukemia Lung cancer Prostate cancer Social History Smoking Status: Current every day smoker tobacco type: cigarettes packs per day: 2 second hand exposure: No alcohol intake: never substance use type: denies use current occupational status: employed Travel in the last 8 weeks: None household members: family housing: house current occupation: [employer] current occupational exposures/hazards: No caffeine: Yes ROS Obtained: Yes All systems reviewed & no additional complaints except as documented Positive ROS per HPI Physical Exam General General appearance: alert and in no apparent distress Comment: Chronically ill-appearing Head Head exam: atraumatic and normocephalic Eye Eye exam: Present PERRL and EOMI ENT ENT exam: Present mucous membranes moist Neck Neck exam: Present normal inspection and full ROM Chest Chest inspection: Present symmetric chest wall rise Respiratory Respiratory exam: Absent normal lung sounds bilaterally (Breath sounds diminished at left lung base), respiratory distress, wheezes or stridor Cardiovascular Cardiovascular exam: Present normal rhythm and tachycardia (Heart rate 100-110 on initial exam) Abdominal Exam Abdominal exam: Present soft; Absent distention or tenderness Extremities Exam Extremities exam: Present full ROM and other (Pulses 2+ in all extremities); Absent edema Neurological Exam Neurological exam: Present alert and oriented X3; Absent motor sensory deficit Psychiatric Psychiatric exam: Present normal affect and normal mood Skin Skin exam: Present warm and dry HEART Score HEART Score HEART Score assessment performed?: Yes History (anamnesis): Slightly suspicious ECG: Non-specific disturbance Age: 45-65 years Risk factors: 1-2 risk factors Troponin: </= normal limit HEART Score: 3 Critical Care Critical Care Time Critical Care Time: No Medical Decision Making Medical Records Medical records reviewed: Yes I reviewed the patient's medical records. MR Comment: On my review of most recent progress note from oncology, there was a detailed history of patient's cancer. Patient and left upper lobe mass, surgical resection, positive lymph nodes, adjuvant therapy, and unfortunately is currently undergoing radiation therapy for multiple areas of bony metastasis including in the thoracic and lumbar spine, sacrum, left acetabulum, concerning area of hypermetabolism in the right hepatic lobe. [place] Inquiry Pt receiving controlled substance: No Vital Signs Vital Signs: 05/01/24 04:24 05/01/24 04:30 05/01/24 05:00 Temperature 99.7 F H Temperature Source Oral Pulse Rate 103 H 100 H Pulse Rate [Left Radial] 108 H Respiratory Rate 20 22 Blood Pressure 141/73 H 121/71 Blood Pressure [Right Arm] 137/86 Blood Pressure Mean [Right Arm] 103 Blood Pressure Source [Right Arm] Automatic Cuff 02 Sat by Pulse Oximetry 92 L 88 L 89 L Oxygen Delivery Method Room Air 05/01/24 05:30 05/01/24 06:01 Temperature Temperature Source Pulse Rate 108 H 116 H Pulse Rate [Left Radial] Respiratory Rate 22 20 Blood Pressure 144/74 H 135/85 Blood Pressure [Right Arm] Blood Pressure Mean [Right Arm] Blood Pressure Source [Right Arm] 02 Sat by Pulse Oximetry 90 L 92 L Oxygen Delivery Method Lab Data Labs: Lab Results 05/01/24 04:30: WBC 8.9, RBC 3.52 L, Hgb 11.2 L, Hct 36.1 L, MCV 102.5 H, MCH 31.9 H, MCHC 31.2 L, RDW 15.3, Plt Count 194, MPV 8.1, Neut % (Auto) 82.6 H, Lymph % (Auto) 10.6, [place] % (Auto) 6.2, Eos % (Auto) 0.6, Baso % (Auto) 0.1, Neut # (Auto) 7.4, Lymph # (Auto) 0.9, [place] # (Auto) 0.6, Eos # (Auto) 0.1, Baso # (Auto) 0.0, Sodium 131 L, Potassium 3.4 L, Chloride 92 L, Carbon Dioxide 39 H, Anion Gap 3.4 L, BUN 11, Creatinine 0.50 L, Estimated Creat Clear 68, Estimated GFR 124, Est GFR ( Amer) 150, Glucose 168 H, Calcium 8.6, Total Bilirubin 0.6, AST 17, ALT 17, Alkaline Phosphatase 127 H, Troponin I < 0.01, Total Protein 6.5, Albumin 3.5, Globulin 3.0, Albumin/Globulin Ratio 1.2 05/01/24 04:40: SARS-CoV-2 (PCR) Not detected, Influenza A Untype (PCR) Not detected, Influenza Type B (PCR) Not detected 05/01/24 04:43: VBG pH 7.42 H, VBG pCO2 50.3, VBG pO2 50.5 H, VBG HCO3 32.1 H, VBG Total CO2 33.7 H, VBG O2 Saturation 84.0 H, VBG Base Excess 7.7 H, VBG Lactic Acid 1.4 05/01/24 04:30 05/01/24 04:30 Response Orders (Tests/Meds): ED MEDICATIONS Generic Name Dose Route Start Last Admin Trade Name Freq PRN Reason Stop Dose Admin Sodium Chloride 10 ml 05/01/24 05:19 05/01/24 05:20 Sodium Chloride 0.9% 10ml Syr (Rad Only) IV 05/31/24 05:18 10 ml NEEDED PRN Administration Maintain IV Site Discontinued Medications Generic Name Dose Route Start Last Admin Trade Name Freq PRN Reason Stop Dose Admin Albuterol/Ipratropium 3 ml 05/01/24 04:11 05/01/24 04:51 Ipratropium/Albuterol 3 Ml Neb IH 05/01/24 04:12 3 ml ONCE ONE Administration Dexamethasone 4 mg 05/01/24 05:34 05/01/24 05:48 Dexamethasone 4mg Tablet PO 05/01/24 05:35 4 mg ONCE ONE Administration Gabapentin 300 mg 05/01/24 05:34 05/01/24 05:48 Gabapentin 300mg Capsule PO 05/01/24 05:35 300 mg ONCE ONE Administration Iopamidol 70 ml 05/01/24 05:19 05/01/24 05:20 Iopamidol-370 (76%);100ml Bottle IV 05/01/24 05:20 70 ml ONCE ONE Administration Morphine Sulfate 30 mg 05/01/24 05:34 05/01/24 05:48 Morphine 20mg/Ml 1ml Oral Solution PO 05/01/24 05:35 Not Given ONCE ONE Morphine Sulfate 30 mg 05/01/24 05:47 05/01/24 05:49 Morphine 30mg Extended Release Tab PO 05/01/24 05:48 30 mg ONCE ONE Administration Ondansetron HCl 4 mg 05/01/24 05:34 05/01/24 05:49 Ondansetron 4mg/2ml Vial IV 05/01/24 05:35 4 mg ONCE ONE Administration Oxycodone HCl 20 mg 05/01/24 05:36 05/01/24 05:48 Oxycodone 20mg Extended Release Tab.Er.12h PO 05/01/24 05:37 20 mg ONCE ONE Administration Potassium Chloride 20 meq 05/01/24 04:51 05/01/24 04:57 Potassium Chloride 20meq Tab PO 05/01/24 04:52 20 meq ONCE ONE Administration Sodium Chloride 50 ml 05/01/24 05:19 05/01/24 05:20 0.9 % Sodium Chloride 50 Ml Vial IV 05/01/24 05:20 50 ml ONCE ONE Administration ORDERS Category Date Time Status CT angio chest PE protocol Stat Cat Scan 05/01/24 04:11 Completed CBC w/Auto Diff [Complete Blood Count Auto Diff] Stat Lab 05/01/24 04:30 Completed CMP [Comprehensive Metabolic Panel] Stat Lab 05/01/24 04:30 Completed Rapid PCR Covid and Flu A/B Stat Lab 05/01/24 04:40 Completed Trop I [Troponin I] Stat Lab 05/01/24 04:30 Completed Troponin I Q3H Lab 05/01/24 07:15 Ordered Troponin I Q3H Lab 05/01/24 10:15 Ordered VBG [Venous Blood Gas] Stat RT 05/01/24 04:43 Completed ECG Request Stat Y 05/01/24 04:11 Ordered MDM Narrative Medical Decision Narrative: In summary, this 63-year-old female with past medical history and comorbidities listed in HPI which increase her overall morbidity presents to the emergency department today with concerns of shortness of breath, cough, pain with coughing. On initial evaluation patient is mildly tachycardic but otherwise hemodynamically stable, afebrile, pulmonary exam notable for diminished breath sounds at the left lung base. Differential diagnosis includes but is not limited to ACS, PE for which she has increased risk due to having active cancer, pneumonia, since patient's pain is primarily in her back with coughing and she has known bony metastasis I did consider possibility of pathologic fracture, also considered pneumothorax, viral syndrome. Based on these concerns, I ordered serum labs, cardiac workup, CTA PE. ECG personally interpreted demonstrates sinus tachycardia, rate 102, occasional PVC, normal axis, normal IL and QTc, no STEMI. Patient received DuoNeb for treatment since she reported improvement of symptoms previously at other facility with breathing treatment. Labs personally reviewed demonstrate VBG with pH 7.42, pCO2 50.3, no leukocytosis, mild anemia, slight hyponatremia, hypokalemia, hypochloremia, patient is receiving oral potassium repletion, initial troponin undetectably low at less than 0.01. Given patient's duration of symptoms I do not believe serial troponin is indicated at this time as ACS should already be showing troponin elevation. COVID/flu negative. Patient reported symptomatic improvement after receiving DuoNeb though her lung sounds are unchanged and she continued having borderline hypoxia on room air. She has a prescription for nasal cannula at home and just has not been wearing it. Nasal cannula was applied. CT imaging personally interpreted demonstrate no large PE, I do appreciate new compression fracture of T7, see radiology read for final interpretation. Patient does not have any neurologic deficits but does have pain in this area. This is a pathologic fracture but patient has already received radiation and is on extensive pain control medications. Her morning pain control medications including morphine, oxycodone, gabapentin, dexamethasone were all administered in the ER. I had an interactive discussion with transfer center Dr. Portillo who is discussing this case with the neurosurgery spine team to see if they have any additional recommendations. Neurosurgery spine team was consulted, they stated if patient wanted to be braced for pain management, this was an option however it would simply be for pain management, and patient would have to be transferred to ER for this purpose. I offered this to the patient but she declined stating she would like to be at home and manage her pain with her home pain medications and follow-up with the spine team outpatient. [facility] has all of her contact information and the spine clinic will contact her for outpatient follow-up. Patient continues to be stable. Her tachycardia is improved compared to arrival with her heart rate now staying around 100. Pain is better controlled after receiving her home medications. Mucinex was prescribed to help with expectoration. Patient was instructed on incentive spirometer use to help prevent atelectasis. Patient was given instructions on symptomatic management, close follow up instructions with oncology and spine, and return precautions for the emergency department. Patient indicated understanding and was discharged in stable condition.
[2024-05-01 04:24] VITALS: BP 137/86; PULSE 108; RESP 20; TEMP 37.6; O2SAT 92; BMI 27.6
[2024-05-01 04:30] VITALS: BP 141/73; PULSE 103; O2SAT 88
[2024-05-01 04:37] LABS: Basophils % 0.1 % (0.1-2.0); Eosinophils # 0.1 K/mm3 (0.0-0.4); Eosinophils % 0.6 % (0.1-12.0); Hematocrit 36.1 % (37.0-47.0); Hemoglobin 11.2 g/dL (12.2-16.2); Lymphocytes # 0.9 K/mm3 (0.7-4.5); Lymphocytes % 10.6 % (10-50); Mean Corpuscular HGB Conc 31.2 g/dL (31.8-35.4); Mean Corpuscular Hemoglobin 31.9 pg (27.0-31.2); Mean Corpuscular Volume 102.5 fl (81-99); Mean Platelet Volume 8.1 fl (7.4-10.4); Monocytes # 0.6 K/mm3 (0.1-1.0); Monocytes % 6.2 % (1.7-9.3); Neutrophils # 7.4 K/mm3 (1.8-7.8); Neutrophils % 82.6 % (37.0-80.0); Platelet Count 194 K/mm3 (142-424); Red Blood Count 3.52 M/mm3 (4.20-5.40); Red Cell Distribution Width 15.3 % (11.5-17.5); White Blood Count 8.9 K/mm3 (4.8-10.8)
[2024-05-01 04:43] LABS: Coronavirus 19, PCR Not Detected (NotDetected); Influenza A, PCR Not Detected (NotDetected); Influenza B, PCR Not Detected (NotDetected)
[2024-05-01 04:46] LABS: Alanine Aminotransferase 17 U/L (12-78); Albumin Level 3.5 g/dl (3.5-5.0); Albumin/Globulin Ratio 1.2 (1.1-1.8); Alkaline Phosphatase 127 U/L (38-126); Anion Gap 3.4 mEq/L (5-15); Aspartate Amino Transferase 17 U/L (14-36); Bilirubin,Total 0.6 mg/dl (0.2-1.3); Blood Urea Nitrogen 11 mg/dl (7-17); Calcium 8.6 mg/dl (8.4-10.2); Carbon Dioxide 39 mmol/L (22.0-30.0); Chloride 92 mmol/L (98-107); Creatinine Clearance Estimated 68 mL/min (50-200); Estimated Glomerular Filt Rate 124 ml/min (>60); GFR (African American) 150 ML/MIN (>60); Glucose 168 mg/dl (74-100); Potassium 3.4 mmoL/L (3.5-5.1); Sodium 131 mmol/L (136-145); Total Protein,Serum 6.5 g/dl (6.3-8.2)
[2024-05-01 04:50] LABS: Lactate Venous 1.4 mmol/L (0.4-2.0); VBG Base Excess 7.7 mmol/L (-2.4-2.3); VBG HCO3 32.1 mmol/L (23-30); VBG PH 7.42 mmol/L (7.31-7.41); VBG PO2 50.5 mmol/L (28-40); VBG Total CO2 33.7 mmol/L (23-27)
[2024-05-01] MEDS: IPRATROPIUM/ALBUTEROL 3 ML NEB IH (04:51)
[2024-05-01 04:52] LABS: VBG PCO2 50.3 mmol/L (35-51)
[2024-05-01] MEDS: POTASSIUM CHLORIDE 20MEQ TAB 20 MEQ PO (04:57)
[2024-05-01 04:58] LABS: Troponin I < 0.01 ng/ml (0.00-0.034)
[2024-05-01 05:00] VITALS: BP 121/71; PULSE 100; RESP 22; O2SAT 89
[2024-05-01] MEDS: IOPAMIDOL-370 (76%);100ML BOTTLE 70 ML IV (05:20)
[2024-05-01] MEDS: SODIUM CHLORIDE 0.9% 10ML SYR (RAD ONLY) 10 ML IV (05:20)
[2024-05-01] MEDS: 0.9 % SODIUM CHLORIDE 50 ML VIAL IV (05:20)
[2024-05-01 05:30] VITALS: BP 144/74; PULSE 108; RESP 22; O2SAT 90
[2024-05-01] MEDS: DEXAMETHASONE 4MG TABLET 4 MG PO (05:48)
[2024-05-01] MEDS: OXYCODONE 20 MG PO (05:48)
[2024-05-01] MEDS: GABAPENTIN 300MG CAPSULE 300 MG PO (05:48)
[2024-05-01] MEDS: MORPHINE 30MG EXTENDED RELEASE TAB 30 MG PO (05:49)
[2024-05-01] MEDS: ONDANSETRON 4MG/2ML VIAL 4 MG IV (05:49)
[2024-05-01 06:01] VITALS: BP 135/85; PULSE 116; RESP 20; O2SAT 92
[2024-05-01 07:15] VITALS: BP 134/73; PULSE 102; RESP 20; TEMP 36.7; O2SAT 99
== END 2024-05-01 07:24 | disposition home or self-care (01) ==
PROVIDERS: Emergency Provider Emergency Medicine; PCP Internal Medicine Adolescent Medicine
DX: S22.060A Wedge compression fracture of T7-T8 vertebra, initial encounter for closed fracture (principal); R06.02 Shortness of breath; R05.9 Cough, unspecified; E87.6 Hypokalemia; R00.0 Tachycardia, unspecified; C34.12 Malignant neoplasm of upper lobe, left bronchus or lung; C79.51 Secondary malignant neoplasm of bone; F17.210 Nicotine dependence, cigarettes, uncomplicated
CPT/HCPCS: 71275; 80053; 82803; 84484; 85025; 87636; 93005; 96374; 99285; J1642; J2405; J7620; J8540; Q9967